=== PATIENT | male | born 1955 | race Caucasian/White ===

== ENCOUNTER 2018-11-11 17:40 | Observation (INO) ==
[2018-11-11 19:23] LABS: Basophils % 0.2 %; Eosinophils # 0.1 K/mcL (0.0-0.6); Eosinophils % 0.8 %; Hematocrit 42.6 % (37.5-50.1); Hemoglobin 14.9 g/dL (12.9-16.9); Immature Granulocytes % 0.4 % (0-4); Lymphocytes # 1.6 K/mcL (0.6-4.6); Mean Platelet Volume 11.1 fL (9.4-12.4); Monocytes # 1.2 K/mcL (0.0-1.3); Monocytes % 9.7 %; Neutrophils # 9.4 K/mcL (1.6-8.9); Platelet Count 208 K/mcL (140-400); Red Blood Count 5.13 M/mcL (4.19-5.50); Red Cell Distribution Width 13.2 % (11.5-14.5); Segmented Neutrophils % 75.9 %
[2018-11-11 19:43] LABS: BUN/Creatinine Ratio 13 (6-26); Blood Urea Nitrogen 26 mg/dL (8-23); Calcium 9.8 mg/dL (8.6-10.3); Carbon Dioxide 24 mEq/L (23-29); Chloride 98 mEq/L (98-107); Glucose 213 mg/dL (70-105); Osmolality,Calculated 291 (280-300); Potassium 3.3 mEq/L (3.5-5.1); Sodium 135 mEq/L (136-145); eGFR For Non-African Americans 35 (> 60)
[2018-11-11 19:44] LABS: Troponin I < 0.03 ng/mL (< 0.04)
[2018-11-11] MEDS ORDERED: 0.9 % Sodium Chloride 1,000 ML IVC ONE ×2 (19:54→20:06)
--- NOTE | 2018-11-11 20:05 | Emergency Department Note ---
Disposition Clinical Impression: Near syncope, Acute kidney injury Disposition: Admitted As Inpatient Condition: Good Referrals: NONE,PCP [Primary Care Provider] - Forms: ED Satisfaction Letter General Adult HPI - General Chief complaint: ED Ear Stated complaint: URI/Dizzy Time Seen by Provider: 11/11/18 18:35 Source: EMS Mode of arrival: ambulatory Limitations: no limitations Nursing Notes Reviewed: Yes Vital Signs Reviewed: Yes - History of Present Illness HPI Narrative: Patient was walking around [facility] when he became lightheaded and dizzy. Concern for possible low blood sugar and dehydration. Patient drinking Gatorade. Patient continued to not feel well and felt something might be wrong. Patient came to the emergency department for further evaluation. Upon my evaluation the patient he has been here approximately one hour. Patient states after drinking a Powerade he has had some improvement. Patient has no further feelings of feeling like he might pass out. Patient has not had chest pain or shortness of breath. The patient will undergo further evaluation for near syncopal event. Pain Scale: 0 - Related Data Home Medications Medication Instructions Recorded Confirmed Amlodipine [Norvasc] 10 mg PO QAM 06/14/15 06/14/15 Aspirin Enteric Coated [Aspirin EC] 81 mg PO QAM 06/14/15 06/14/15 Cyclobenzaprine [Flexeril] 10 mg PO TID 06/14/15 06/14/15 Multivitamin [Multi-Day Vitamins] 1 tab PO QAM 06/14/15 06/14/15 Naproxen [Naprosyn] 500 mg PO BID 06/14/15 06/14/15 Oxycodone HCl/Acetaminophen 1 tab PO Q8H PRN 06/14/15 06/14/15 [Percocet 5-325 mg Tablet] Potassium Chloride 20 meq PO BID 06/14/15 06/14/15 Pravastatin Sodium 10 mg PO QAM 06/14/15 06/14/15 Ramipril [Altace] 20 mg PO QAM 06/14/15 06/14/15 Ranitidine HCl [Zantac] 150 mg PO QPM 06/14/15 06/14/15 metFORMIN [Glucophage] 500 mg PO QAM 06/14/15 06/14/15 Previous Rx's Medication Instructions Recorded Dicyclomine [Bentyl] 10 mg PO QID PRN #20 capsule 07/26/15 Ondansetron ODT [Zofran ODT] 4 mg SL Q6HR #10 tab.rapdis 01/26/17 Docusate [Colace] 100 mg PO BID #60 capsule 10/13/17 Nitrofurantoin Monohyd/M-Cryst 100 mg PO BID #14 capsule 06/06/18 [Macrobid 100 mg Capsule] Allergies Allergy/AdvReac Type Severity Reaction Status Date / Time No Known Allergies Allergy Verified 10/05/18 15:57 All systems ED: reviewed and negative except as stated. Review of Systems: As Per HPI Constitutional: Denies: fever, chills ENT ED: Denies: congestion Cardiovascular: Reports: syncope (Near-syncope), other (Facial flushing). Denies: chest pain, palpitations Respiratory: Denies: cough, dyspnea Gastrointestinal: Denies: abdominal pain, nausea, vomiting Genitourinary: Denies: urgency, dysuria Musculoskeletal: Denies: back pain, neck pain Integumentary: Denies: rash, abrasion Neurological: Denies: headache Endocrine: Denies: fatigue Past Medical History - Past Medical History Medical history: Reports: arthritis, cancer, diabetes, GERD, hyperlipidemia, hypertension, other Surgical history: Reports: cataract, cholecystectomy, orthopedic, other Psychiatric history: Reports: no psych history - Social History Smoking Status: Former smoker Smokeless Tobacco Status: No Alcohol use: Reports: none Drug use: Reports: none Physical Exam General: Well appearing, nontoxic, no acute distress Head: Normocephalic Atraumatic Eyes: Right eye with lateral nystagmus ENT: Airway patent, no stridor Neck: supple, no meningismus Chest: Lungs clear to auscultation bilateral Cardiac: Regular rate and rhythm, no murmurs, rubs or gallops Abdomen: soft, nontender, nondistended; no guarding, rebound, or tenderness to percussion Musculoskeletal: Calves symmetric, nontender. Skin: No rash, normal skin tone. Neuro: Alert and Oriented to person, place, and time; No obvious focal deficit. - General General appearance: alert, in no apparent distress Course - Reevaluation(s) Reevaluation #1: Patient found to have significant acute kidney injury. In combination with his near syncopal event which was otherwise unexplained the patient will be admitted for further evaluation. - Consultations Consultation #1: discussed with hospitalist. Pt accepted for admission. Vital Signs Temperature 98.3 F 11/11/18 17:43 Pulse Rate 84 11/11/18 17:43 Respiratory Rate 16 11/11/18 17:43 Blood Pressure 112/78 11/11/18 17:43 O2 Sat by Pulse Oximetry 100 11/11/18 17:43 Temperature 98.3 F 11/11/18 17:43 Pulse Rate 84 11/11/18 17:43 Respiratory Rate 16 11/11/18 17:43 Blood Pressure 112/78 11/11/18 17:43 O2 Sat by Pulse Oximetry 100 11/11/18 17:43 Oxygen Delivery Oxygen Delivery Room Air Medical Decision Making - Medical Records Medical records reviewed: Yes I reviewed the patient's medical records. - Lab Data Lab results reviewed: Yes I reviewed the patient's lab results. Result diagrams: 11/11/18 19:09 11/11/18 19:09 Lab Results 11/11/18 11/11/18 Range/Units 19:09 19:09 WBC 12.4 H (4.3-11.1) K/mcL RBC 5.13 (4.19-5.50) M/mcL Hgb 14.9 (12.9-16.9) g/dL Hct 42.6 (37.5-50.1) % MCV 83.0 (83.0-100.0) fL MCH 29.0 (28.0-33.3) pg MCHC 35.0 (31.6-35.5) g/dL RDW 13.2 (11.5-14.5) % Plt Count 208 (140-400) K/mcL MPV 11.1 (9.4-12.4) fL Immature Gran % 0.4 (0-4) % Seg Neutrophils % 75.9 % Lymphocytes % 13.0 % Monocytes % 9.7 % Eosinophils % 0.8 % Basophils % 0.2 % Neutrophils # 9.4 H (1.6-8.9) K/mcL Lymphocytes # 1.6 (0.6-4.6) K/mcL Monocytes # 1.2 (0.0-1.3) K/mcL Eosinophils # 0.1 (0.0-0.6) K/mcL Basophils # 0.0 (0.0-0.2) K/mcL Sodium 135 L (136-145) mEq/L Potassium 3.3 L (3.5-5.1) mEq/L Chloride 98 (98-107) mEq/L Carbon Dioxide 24 (23-29) mEq/L BUN 26 H (8-23) mg/dL Creatinine 1.96 H (0.70-1.30) mg/dL Est GFR ( Amer) 42 L (> 60) Est GFR (Non-Af Amer) 35 L (> 60) BUN/Creatinine Ratio 13 (6-26) Glucose 213 H (70-105) mg/dL Calculated Osmolality 291 (280-300) Calcium 9.8 (8.6-10.3) mg/dL Troponin I < 0.03 (< 0.04) ng/mL - Radiology Data Radiology results reviewed: Yes I reviewed the patient's radiology results. - EKG Data EKG #1 EKG attestation: Yes I reviewed and interpreted this EKG. EKG results narrative: EKG shows sinus rhythm with ventricular rate of 81 [place] 203 QRS [address] elevations or depressions. Decreased R-wave progression compared to previous of 06/06/18.
[2018-11-11] MEDS ORDERED: Naloxone 0.4 MG/ML INJ IVP PRN (20:52)
[2018-11-11 22:31] LABS: Bilirubin,Urine Negative (Negative); Blood,Urine Negative (Negative); Clarity,Urine Clear (Clear); Color,Urine Yellow (Yellow); Glucose,Urine (UA) Normal (Normal); Ketones,Urine Trace mg/dL (Negative); Leukocyte Esterase,Urine Negative (Negative); Nitrite,Urine Negative (Negative); Protein,Urine 30 mg/dL (Neg-Trace); Specific Gravity,Urine 1.008 (1.010-1.025); Urobilinogen,Urine Normal (Normal)
[2018-11-11 22:33] LABS: Bacteria,Urine None Seen per hpf (None-Few); RBC,Urine 0-3 per hpf (0-3); Squamous Epithelial Cell,Urine Many per lpf (None-Few)
[2018-11-11 22:46] LABS: Hyaline Casts,Urine Few per lpf (None-Few)
[2018-11-12] MEDS ORDERED: Potassium Chloride Elixir 20 MEQ/15 ML UDC PO ONE ×2 (00:18→02:24)
[2018-11-12 01:21] LABS: Basophils % 0.4 %; Eosinophils # 0.2 K/mcL (0.0-0.6); Eosinophils % 1.6 %; Hematocrit 40.7 % (37.5-50.1); Hemoglobin 14.2 g/dL (12.9-16.9); Immature Granulocytes % 0.2 % (0-4); Lymphocytes # 2.7 K/mcL (0.6-4.6); Mean Corpuscular HGB Conc 34.9 g/dL (31.6-35.5); Mean Corpuscular Volume 83.2 fL (83.0-100.0); Mean Platelet Volume 11.8 fL (9.4-12.4); Monocytes # 1.2 K/mcL (0.0-1.3); Monocytes % 10.2 %; Neutrophils # 7.2 K/mcL (1.6-8.9); Platelet Count 215 K/mcL (140-400); Red Blood Count 4.89 M/mcL (4.19-5.50); Red Cell Distribution Width 13.2 % (11.5-14.5); Segmented Neutrophils % 63.6 %
[2018-11-12 01:24] LABS: Chol/HDL Ratio 4.3 (0-4.9); Cholesterol 130 mg/dL (< 200); HDL Cholesterol 30 mg/dL (40-59); LDL Cholesterol,Calculated 79 mg/dL (0-99); Magnesium 1.8 mg/dL (1.6-2.6); Triglycerides 107 mg/dL (< 150)
[2018-11-12 01:37] LABS: Calcium 9.2 mg/dL (8.6-10.3); Potassium 2.8 mEq/L (3.5-5.1)
[2018-11-12 01:38] LABS: Thyroid Stimulating Hormone 2.445 mcIU/mL (0.340-5.600)
[2018-11-12] MEDS ORDERED: 0.9 % Sodium Chloride 1,000 ML IVC SCH (02:30)
--- NOTE | 2018-11-12 03:23 | Internal Med History&Physical ---
Date of Encounter: 11/12/18 Time of Encounter: 02:27 Internal Medicine - H&P: HPI Chief complaint: Near syncope History of present illness: Mr. Jett is a 63 year old male with a past medical history of diabetes, hypertension, hyperlipidemia who presents to the ED after a near syncopal event. Patient states that earlier today while shopping at [employer] he began feeling flushed and warm and shortly thereafter states he nearly passed out. Patient denies any loss of consciousness. He immediately sat down on a bench and subsequently decided to come into the hospital. Patient denies any chest pain, shortness of breath, palpitations prior to the event. He has no history of heart disease. He has a remote history of smoking. He states he has had several of these events over the past few years where he has passed out while standing. He states most of the time it is because of his low potassium and low blood sugar. On arrival, EMS reported a blood sugar of 120. Found to be over 200 after arrival to the ED. No family history of sudden cardiac or blood clots. He reports that he lives with his sister but has not had running tap water or heat for the past 8 years. Patient currently gets his water from his next-door neighbor by filling of large jugs and uses electric heaters at home. On arrival patient was afebrile and hemodynamically stable. Labs were notable for a mild leukocytosis of 12 and acute kidney injury. Patient is also legally blind in both eyes. Initial troponin and EKG were unremarkable. Chest x-ray was also unremarkable. Patient admitted for dehydration and near syncope workup. Past Med Surg Social Fam HX - Past Medical History Medical history: arthritis, cancer, diabetes, GERD, hyperlipidemia, hypertension, other Additional medical history: low potassium Psychiatric history: no psych history - Past Surgical History Surgical History: cataract, cholecystectomy, orthopedic, other Additional surgical history: Circumcision,carpal tunnel,right ankle - Social History Smoking Status: Former smoker Smokeless Tobacco Status: No Alcohol use: none Drug use: none - Family History Mother Living Status: Hx Family Cardiac Disorders: Yes (stroke) Hx Family Neuromuscular Disorders: Yes (stroke) Internal Medicine - H&P: Meds Amlodipine Besylate 10 mg PO DAILY 11/12/18 [History] Aspirin [Adult Aspirin] 81 mg PO DAILY 11/12/18 [History] Cyclobenzaprine [Flexeril] 20 mg PO HS PRN 11/12/18 [History] Hydrochlorothiazide [Microzide] 12.5 mg PO DAILY 11/12/18 [History] Lactulose [Enulose] 10 gm PO DAILY 11/12/18 [History] Multivitamin [One Daily Multivitamin] 1 tab PO DAILY 11/12/18 [History] Naproxen 1,000 mg PO DAILY PRN 11/12/18 [History] OxyCODONE/APAP 5/325 [Percocet 5/325 MG] 1 tab PO Q8H PRN 11/12/18 [History] Potassium Chloride [K-Tab ER] 20 meq PO BID 11/12/18 [History] Pravastatin Sodium 10 mg PO DAILY 11/12/18 [History] Ramipril 20 mg PO DAILY 11/12/18 [History] metFORMIN [Glucophage] 500 mg PO DAILY 11/12/18 [History] raNITIdine HCl [Zantac] 300 mg PO HS 11/12/18 [History] Allergy/AdvReac Type Severity Reaction Status Date / Time No Known Allergies Allergy Verified 11/12/18 13:06 All Systems PM: A 10-system review of systems was performed and is negative for pertinent findings except as documented above in the HPI. - Constitutional Constitutional: no chills, no fever(s), no night sweats - EENT Eyes: no change in vision, no discharge, no pain, no photophobia Ears: no ear discharge, no ear pain, no tinnitus Nose, mouth and throat: no dysphagia, no nasal discharge, no neck pain, no sore throat - Cardiovascular Cardiovascular ROS IM: no chest pain, no diaphoresis, no dyspnea, no lightheadedness, no palpitations, no syncope - Respiratory Respiratory: no cough, no dyspnea, no wheezing, no excessive phlegm production - Gastrointestinal Gastrointestinal: no abdominal pain, no diarrhea, no hematemesis, no hematochezia, no melena, no nausea, no vomiting - Musculoskeletal Musculoskeletal ROS IM: no numbness, no tingling - Integumentary Integumentary IM: no rash, no unusual bruising - Neurological Neurological ROS: no confusion, no convulsions, no focal weakness, no numbness, no tingling, no tremor(s) - Hematologic/Lymphatic Hematologic/Lymphatic: no easy bruising - Constitutional Vitals: Temp Pulse Resp BP Pulse Ox 98.1 F 84 16 163/77 99 11/11/18 21:29 11/11/18 21:29 11/11/18 21:29 11/11/18 21:29 11/11/18 21:29 Exam: General: Alert and oriented 3 lying in bed in no acute distress Skin:Normal color, no rash, no lesions. HEENT:EOM, pupils equal, round and reactive. Cardiovascular:Normal S1 & S2, no rubs, murmurs or gallops. No JVD. Pulse regular. Lungs:Normal breath sounds, no wheezes or crackles. Abdomen:Soft, non-tender, no rigidity. Extremities:No deformity, no edema or tenderness, no joint swelling or clubbing. Neurological:Normal cognition and motor skills. Pulses:Carotid and radial pulses normal +2. Rest of the physical exam is non contributory Internal Med - H&P Results - Labs CBC & Chem 7: 11/12/18 00:16 11/12/18 00:16 Labs: Short CBC 11/11/18 11/12/18 Range/Units 19:09 00:16 WBC 12.4 H 11.3 H (4.3-11.1) K/mcL Hgb 14.9 14.2 (12.9-16.9) g/dL Hct 42.6 40.7 (37.5-50.1) % Plt Count 208 215 (140-400) K/mcL Neutrophils # 9.4 H 7.2 (1.6-8.9) K/mcL BMP 11/11/18 11/12/18 19:09 00:16 Sodium 135 L 137 Potassium 3.3 L 2.8 L Chloride 98 103 Carbon Dioxide 24 26 BUN 26 H 24 H Creatinine 1.96 H 1.44 H Glucose 213 H 169 H Calcium 9.8 9.2 Cardiac Enzymes 11/11/18 11/12/18 Range/Units 19:09 00:16 Troponin I < 0.03 < 0.03 (< 0.04) ng/mL Urine 11/11/18 Range/Units 22:14 Urine Color Yellow (Yellow) Urine Clarity Clear (Clear) Urine pH 7.0 (5.0-8.0) pH Units Ur Specific [place] 1.008 L (1.010-1.025) Urine Protein 30 H (Neg-Trace) mg/dL Urine Glucose (UA) Normal (Normal) mg/dL - Impressions ITS Impressions Chest X-Ray 11/11/18 18:56 IMPRESSION: No radiographic evidence of acute cardiopulmonary process. D/ / Sharad Means MD / Sharad Means MD Interpreting Provider: Sharad Means MD - Assessment and plan (1) Near syncope Current Visit: Yes Status: Acute Assessment and plan: Patient reports a near syncopal episode preceded by a flushing sensation which occurred while standing. Troponin and EKG were unremarkable. Per EMS report his blood sugar was in the 120s on initial assessment. Repeat blood sugar here was over 200. Patient reports he has had syncopal episodes in the past which she attributed to low potassium and low blood sugar. No history of heart disease nor family history of heart disease or sudden cardiac . Most likely vasovagal versus orthostatic from dehydration in the setting of acute kidney injury. Cannot rule out cardiac syncope. -Telemetry -We will obtain orthostatic vitals -We will obtain echocardiogram -Bilateral carotid duplex -Cardiology consult due to recurrent episodes (2) Acute kidney injury Current Visit: Yes Status: Acute Assessment and plan: Acute kidney injury likely prerenal secondary to decreased by mouth intake. She received 2 L of fluid boluses in the ED. We will repeat metabolic panel in the morning and reassess. (3) HTN (hypertension) Current Visit: Yes Status: Chronic Assessment and plan: Pressure stable. Monitor Qualifiers: Hypertension type: essential hypertension Qualified Code(s): I10 - Essential (primary) hypertension (4) Hyperlipidemia associated with type 2 diabetes mellitus Current Visit: No Status: Chronic Assessment and plan: Continue with home statin (5) Type 2 diabetes mellitus Current Visit: Yes Status: Acute Assessment and plan: Type 2 diabetes. We will obtain blood glucose checks. Sliding scale insulin. Qualifiers: Diabetes mellitus terminal worker insulin use: unspecified nursing home insulin use status Chronic kidney disease stage: unspecified stage Qualified Code(s): E11.22 - Type 2 diabetes mellitus with diabetic chronic kidney disease (6) DVT prophylaxis Current Visit: Yes Status: Acute Assessment and plan: Subcutaneous heparin - Time Spent With Patient Total time spent is greater than 50% in coordination of care (as documented) at patient's floor/unit and/or counseling patient:
[2018-11-12] MEDS: *HR* Heparin 5,000 UNIT/ML VIAL SQ SCH ×3 (05:35→21:20)
[2018-11-12] MEDS ORDERED: Dextrose Gel 15 GM/37.5 ML TUBE PO PRN ×2 (08:01)
[2018-11-12] MEDS ORDERED: *HR* Dextrose 50 % in Water (Syg) 50 ML SYRINGE IVP PRN (08:01)
[2018-11-12] MEDS ORDERED: D5% in Water 1,000 ML IVC PRN (08:01)
[2018-11-12] MEDS: 0.9 % Sodium Chloride w KCl 40 MEQ/1,000 ML MLS IVC SCH ×2 (09:11→17:30)
--- NOTE | 2018-11-12 11:09 | Cardiology Consult Note ---
Addendum entered and electronically signed by Obie Hearn MD 11/12/18 11:59: I examined this patient and my medical decision-making was reviewed with the CONTROL TOWER OPERATOR. I agree with the documented findings, disposition and treatment plan as described except to the extent set forth below. A/P: Acute kidney injury likely 2/2 hypovolemia Near syncope Dehydration Repeat BMP, EKG ordered, TTE pending. Currently does not appear to be cardiac in origin. He denies any anginal symptoms. Thank you for the consult and allowing us to participate in the care of your patient, Obie Hearn MD [facility] Original Note: Date of Encounter: 11/12/18 Time of Encounter: 09:00 Assessment and Plan (1) Acute kidney injury Current Visit: Yes Status: Acute Per cardiology: -CHARIS noted, creatinine 1.96. -Baseline 0.8-1.1. -Management per primary service. (2) Near syncope Current Visit: Yes Status: Acute Per cardiology: -Patient reported near syncope in the setting of CHARIS, dehydration. Of note, reports no water intake at home. -Reports has had a couple episodes of dizziness previously. -Denies syncope, loss of bowel or bladder. -No ECG to review. -TTE pending. -No events noted on telemetry. -Will order ECG now. -If no significant findings on TTE, ECG, anticipate cardiology sign of. -Patient was recommended to stay well hydrated with water. Discussion w patient/family: The assessment and plan as outlined above was discussed with the patient who expressed understanding and agreement. All questions were answered. Thank you for involving us in the care of your patient. Please call with any questions. Discussed and reviewed with . History of Present Illness Consult date: 11/12/18 Requesting physician: Haroldo Treviño Consult reason: near syncope Chief complaint: dizziness History of present illness: Mr. Jett is a 63 year old male with a relevant past medical history of HLD, HTN, DM who presented to [facility] with complaints of dizziness. Patient reports [facility] his sister, when he became dizzy. Patient states he felt like he was going to pass out. Patient states he did not lose consciousness. Patient denies loss of bowel or bladder. Patient reports he has had a couple episodes of dizziness previously, however has never lost consciousness. Denies current dizziness, or near syncope. Patient reports he does not drink any water at home. Past Med Surg Social Fam HX - Past Medical History Attestation: Yes The following information was validated with the patient. Source: patient, old records reviewed Medical history: arthritis, cancer, diabetes, GERD, hyperlipidemia, hypertension, other Additional medical history: low potassium Psychiatric history: no psych history - Past Surgical History Surgical History: cataract, cholecystectomy, orthopedic, other Additional surgical history: Circumcision,carpal tunnel,right ankle - Social History Smoking Status: Former smoker Smokeless Tobacco Status: No Alcohol use: none Drug use: none - Family History Mother Living Status: Hx Family Cardiac Disorders: Yes (stroke) Hx Family Neuromuscular Disorders: Yes (stroke) Medications and Allergies Amlodipine [Norvasc] 10 mg PO QAM 06/14/15 [History] Aspirin Enteric Coated [Aspirin EC] 81 mg PO QAM 06/14/15 [History] Cyclobenzaprine [Flexeril] 10 mg PO TID 06/14/15 [History] Multivitamin [Multi-Day Vitamins] 1 tab PO QAM 06/14/15 [History] Naproxen [Naprosyn] 500 mg PO BID 06/14/15 [History] Oxycodone HCl/Acetaminophen [Percocet 5-325 mg Tablet] 1 tab PO Q8H PRN 06/14/15 [History] Potassium Chloride 20 meq PO BID 06/14/15 [History] Pravastatin Sodium 10 mg PO QAM 06/14/15 [History] Ramipril [Altace] 20 mg PO QAM 06/14/15 [History] Ranitidine HCl [Zantac] 150 mg PO QPM 06/14/15 [History] metFORMIN [Glucophage] 500 mg PO QAM 06/14/15 [History] Dicyclomine [Bentyl] 10 mg PO QID PRN #20 capsule 07/26/15 [Rx] Ondansetron ODT [Zofran ODT] 4 mg SL Q6HR #10 tab.rapdis 01/26/17 [Rx] Docusate [Colace] 100 mg PO BID #60 capsule 10/13/17 [Rx] Nitrofurantoin Monohyd/M-Cryst [Macrobid 100 mg Capsule] 100 mg PO BID #14 capsule 06/06/18 [Rx] Allergy/AdvReac Type Severity Reaction Status Date / Time No Known Allergies Allergy Verified 10/05/18 15:57 All Systems Review: The remainder of the systems were reviewed and are negative - Cardiovascular Cardiovascular: as per HPI, lightheadedness Physical Examination Vital Signs, Last 4 Hours Temp Pulse Resp BP Pulse Ox 11/12/18 09:11 99 11/12/18 08:31 97.9 F 68 17 173/77 99 General: Conversant, No Apparent Distress HEENT: Atraumatic, Normocephaly, Mucus Membranes Moist Neck: No JVD, Normal carotid pulses Cardiac: Reg Rate and Rhythm, Normal S1 and S2, No Murmur Lungs: Normal Breath Sounds, No Wheeze, Rales, Rhonchi Neuro: Alert and responsive, No focal deficits noted Abdomen: Soft, Non-Tender Skin: No rashes noted on visualized skin Musculoskeletal: No Chest Wall Tenderness Extremities: No Clubbing, No Cyanosis, No Edema, Normal Pulses Results 11/12/18 00:16 11/12/18 00:16 Lab Results Impressions Chest X-Ray 11/11/18 18:56 IMPRESSION: No radiographic evidence of acute cardiopulmonary process. D/ / Sharad Means MD / Sharad Means MD Interpreting Provider: Sharad Means MD Active Medications Dextrose/Water (Dextrose 50% (Syg)) 25 ml IVP AD PRN PRN Reason: Hypoglycemia Stop: 05/14/19 08:02 Glucagon (Glucagen) 1 mg IM ONCE PRN PRN Reason: Hypoglycemia Stop: 05/14/19 08:02 Glucose (Gluctose) 15 gm PO ONCE PRN PRN Reason: Hypoglycemia Stop: 05/14/19 08:02 Glucose (Gluctose) 30 gm PO ONCE PRN PRN Reason: Hypoglycemia Stop: 05/14/19 08:02 Heparin Sodium (Porcine) (Heparin) 5,000 unit SQ Q8HCO [place] Stop: 05/14/19 06:01 Last Admin: 11/12/18 05:35 Dose: 5,000 unit Potassium Chloride/Sodium Chloride (Kcl 40meq In 0.9% Sodium Chloride) 40 meq in 1,000 mls @ 100 mls/hr IVC .Q10H [place] Stop: 05/14/19 08:01 Last Admin: 11/12/18 09:11 Dose: 100 mls/hr Dextrose (Dextrose 5%) 1,000 mls @ 100 mls/hr IVC .Q10H PRN PRN Reason: HYPOGLYCEMIA Stop: 05/14/19 08:02 Insulin Human Lispro (Humalog) 0 units SQ HS [place]; Protocol Stop: 05/14/19 21:01 Insulin Human Lispro (Humalog) 0 units SQ TIDAC [place]; Protocol Stop: 05/14/19 11:31 Naloxone HCl (Narcan) 0.4 mg IVP Q2MIN PRN PRN Reason: SEE COMMENTS Stop: 05/13/19 20:53 Potassium Chloride (Potassium Chloride) 20 meq PO BID [place] Stop: 05/14/19 09:01 Last Admin: 11/12/18 09:11 Dose: 20 meq Laboratory Tests 10/05/18 11/11/18 11/12/18 16:15 19:09 00:16 WBC Potassium Creatinine 0.85 1.96 H Troponin I < 0.03 < 0.03 11/12/18 11/12/18 11/12/18 00:16 00:16 06:43 WBC 11.3 H Potassium 2.8 L Creatinine 1.44 H Troponin I < 0.03 - Imaging and Cardiology Chest Xray: report reviewed Echo: pending - EKG Interpretation EKG results cardiology: other (Telemetry reviewed with average HR previous 12 hours noted to be 80, SR. PVCs noted.) Consult Discharge Plan - Plan Referrals: Caity Umaña MD [Primary Care Provider] -
[2018-11-12] MEDS ORDERED: amLODIPine 5 MG TABLET PO SCH (11:15)
--- NOTE | 2018-11-12 11:41 | Internal Med Progress Note ---
Hospitalist Progress Note - Encounter Date of Encounter: 11/12/18 Time of Encounter: 10:15 - Subjective Interval History: H&P reviewed. Pt with history of diabetes, hypertension was admitted for near syncopal episode in the setting of CHARIS. No further episodes noted. Denies any nausea/vomiting, abdominal pain, or diarrhea. States that he does not get heat in his home and did not drink much fluid due to milk being slushy and hassle of getting his water from his neighbor. - Exam Vitals: Temp Pulse Resp BP Pulse Ox 97.9 F 68 17 173/77 99 11/12/18 08:31 11/12/18 08:31 11/12/18 08:31 11/12/18 08:31 11/12/18 09:11 Exam: General: Alert and oriented 3 lying in bed in no acute distress Cardiovascular:Normal S1 & S2, no rubs, murmurs or gallops. No JVD. Pulse regular. Lungs:Normal breath sounds, no wheezes or crackles. Abdomen:Soft, non-tender, no rigidity. Neurological: No focal deficitis - Assessment and Plan (1) Acute kidney injury Current Visit: Yes Status: Acute Assessment and Plan: Acute kidney injury likely prerenal secondary to decreased by mouth intake. Improving on IVF, continue hold off on metformin and ADA-i avoid nephrotoxins (2) Near syncope Current Visit: Yes Status: Acute Assessment and Plan: likely secondary to the above but will check echocardiogram and carotid doppler EKG NSR telemetry (3) HTN (hypertension) Current Visit: Yes Status: Chronic Assessment and Plan: resume norvasc (4) Hyperlipidemia associated with type 2 diabetes mellitus Current Visit: No Status: Chronic Assessment and Plan: Continue with home statin (5) Type 2 diabetes mellitus Current Visit: Yes Status: Acute Assessment and Plan: hold off on metformin low dose sliding scale ADA diet (6) Hypokalemia Current Visit: Yes Status: Acute Assessment and Plan: replete via IVF and PO (7) DVT prophylaxis Current Visit: Yes Status: Acute Assessment and Plan: Subcutaneous heparin - Time Spent with Patient Total time spent is greater than 50% in coordination of care (as documented) at patient's floor/unit and/or counseling patient: Plan of Care Discussed with: patient Internal Medicine: Result - Labs CBC & Chem 7: 11/12/18 00:16 11/12/18 00:16 Labs: Short CBC 11/11/18 11/12/18 Range/Units 19:09 00:16 WBC 12.4 H 11.3 H (4.3-11.1) K/mcL Hgb 14.9 14.2 (12.9-16.9) g/dL Hct 42.6 40.7 (37.5-50.1) % Plt Count 208 215 (140-400) K/mcL Neutrophils # 9.4 H 7.2 (1.6-8.9) K/mcL BMP 11/11/18 11/12/18 19:09 00:16 Sodium 135 L 137 Potassium 3.3 L 2.8 L Chloride 98 103 Carbon Dioxide 24 26 BUN 26 H 24 H Creatinine 1.96 H 1.44 H Glucose 213 H 169 H Calcium 9.8 9.2 Cardiac Enzymes 11/11/18 11/12/18 11/12/18 Range/Units 19:09 00:16 06:43 Troponin I < 0.03 < 0.03 < 0.03 (< 0.04) ng/mL Urine 11/11/18 Range/Units 22:14 Urine Color Yellow (Yellow) Urine Clarity Clear (Clear) Urine pH 7.0 (5.0-8.0) pH Units Ur Specific [place] 1.008 L (1.010-1.025) Urine Protein 30 H (Neg-Trace) mg/dL Urine Glucose (UA) Normal (Normal) mg/dL - Impressions Impressions Chest X-Ray 11/11/18 18:56 IMPRESSION: No radiographic evidence of acute cardiopulmonary process. D/ / Sharad Means MD / Sharad Means MD Interpreting Provider: Sharad Means MD Consult Discharge Plan - Plan Referrals: Caity Umaña MD [Primary Care Provider] - (3) HTN (hypertension) Qualifiers: Hypertension type: essential hypertension Qualified Code(s): I10 - Essential (primary) hypertension
[2018-11-12] MEDS: Insulin LISPRO 300 UNITS/3 ML VIAL SQ SCH ×2 (13:12→17:29)
[2018-11-12] MEDS ORDERED: *HR* OxyCODONE/APAP 5/325 TABLET PO PRN (13:53)
[2018-11-12] MEDS ORDERED: Insulin LISPRO 300 UNITS/3 ML VIAL SQ SCH (21:00)
[2018-11-12] MEDS ORDERED: Famotidine 20 MG TABLET PO SCH (21:00)
[2018-11-13] MEDS: 0.9 % Sodium Chloride w KCl 40 MEQ/1,000 ML MLS IVC SCH (03:35)
[2018-11-13] MEDS: *HR* Heparin 5,000 UNIT/ML VIAL SQ SCH (05:59)
[2018-11-13 07:02] LABS: Estimated Average Glucose 154 mg/dl
[2018-11-13] MEDS: Insulin LISPRO 300 UNITS/3 ML VIAL SQ SCH ×2 (08:37→13:14)
[2018-11-13 08:38] VITALS: BP 131/76
[2018-11-13] MEDS ORDERED: amLODIPine 5 MG TABLET PO SCH (09:00)
[2018-11-13] MEDS ORDERED: Aspirin Enteric Coated 81 MG Tablet PO SCH (09:00)
[2018-11-13 09:53] LABS: Basophils % 0.6 %; Eosinophils # 0.2 K/mcL (0.0-0.6); Eosinophils % 3.2 %; Hematocrit 39.6 % (37.5-50.1); Hemoglobin 13.4 g/dL (12.9-16.9); Immature Granulocytes % 0.3 % (0-4); Lymphocytes % 32.4 %; Mean Corpuscular HGB Conc 33.8 g/dL (31.6-35.5); Mean Corpuscular Hemoglobin 28.8 pg (28.0-33.3); Mean Corpuscular Volume 85.2 fL (83.0-100.0); Mean Platelet Volume 11.1 fL (9.4-12.4); Monocytes # 0.7 K/mcL (0.0-1.3); Monocytes % 10.5 %; Neutrophils # 3.3 K/mcL (1.6-8.9); Platelet Count 179 K/mcL (140-400); Red Blood Count 4.65 M/mcL (4.19-5.50); Red Cell Distribution Width 13.9 % (11.5-14.5)
[2018-11-13 10:15] LABS: BUN/Creatinine Ratio 14 (6-26); Blood Urea Nitrogen 12 mg/dL (8-23); Calcium 8.9 mg/dL (8.6-10.3); Carbon Dioxide 27 mEq/L (23-29); Chloride 105 mEq/L (98-107); Glucose 205 mg/dL (70-105); Magnesium 1.7 mg/dL (1.6-2.6); Osmolality,Calculated 292 (280-300); Sodium 138 mEq/L (136-145); eGFR For Non-African Americans > 60 (> 60)
--- NOTE | 2018-11-13 10:18 | Discharge Summary ---
- NOTES TO OUTPATIENT PROVIDER Notes to Outpatient Provider: Pt with history of diabetes, hypertension was admitted for near syncopal episode in the setting of CHARIS. No further episodes noted inpatient. CLinically improved with IVF and both HCTZ and ramipril remains on hold at the time of discharge, which can be resumed as outpatient if needed. Was seen in consultation with cardiology and did not think that it was cardiac in origin. Orders not resulted at time of discharge: Pending orders 11/11/18 18:18 EKG [ECG 12 lead ECG] [ECG] Stat 11/12/18 11:20 ECG 12 lead ECG [ECG] Stat Date of Encounter: 11/13/18 Time of Encounter: 09:00 - Discharge Diagnosis (1) HTN (hypertension) Priority: Secondary Status: Chronic Qualifiers: Hypertension type: essential hypertension Qualified Code(s): I10 - Essential (primary) hypertension (2) Hyperlipidemia associated with type 2 diabetes mellitus Priority: Secondary Status: Chronic (3) Near syncope Priority: Primary Status: Acute (4) Acute kidney injury Priority: Secondary Status: Acute (5) DVT prophylaxis Priority: Secondary Status: Acute (6) Type 2 diabetes mellitus Priority: Secondary Status: Acute Qualifiers: Diabetes mellitus long-term insulin use: unspecified intermediate manager insulin use status Chronic kidney disease stage: unspecified stage Qualified Code(s): E11.22 - Type 2 diabetes mellitus with diabetic chronic kidney disease Hospital course: Mr. Jett is a 63 year old male with history of diabetes, hypertension was admitted for near syncopal episode in the setting of CHARIS. No further episodes noted inpatient. CLinically improved with IVF and both HCTZ and ramipril remains on hold at the time of discharge, which can be resumed as outpatient if needed. Was seen in consultation with cardiology and did not think that it was cardiac in origin. Discharge discussed with: patient, nurse - Time Spent with Patient Total time spent providing and/or coordinating discharge services: 27 mins - Discharge Medications Home Medications: Amlodipine Besylate 10 mg PO DAILY 11/12/18 [History] Aspirin [Adult Aspirin] 81 mg PO DAILY 11/12/18 [History] Cyclobenzaprine [Flexeril] 20 mg PO HS PRN 11/12/18 [History] Lactulose [Enulose] 10 gm PO DAILY 11/12/18 [History] Multivitamin [One Daily Multivitamin] 1 tab PO DAILY 11/12/18 [History] OxyCODONE/APAP 5/325 [Percocet 5/325 MG] 1 tab PO Q8H PRN 11/12/18 [History] Potassium Chloride [K-Tab ER] 20 meq PO BID 11/12/18 [History] Pravastatin Sodium 10 mg PO DAILY 11/12/18 [History] metFORMIN [Glucophage] 500 mg PO DAILY 11/12/18 [History] raNITIdine HCl [Zantac] 300 mg PO HS 11/12/18 [History] Allergies/Adverse Reactions: Allergy/AdvReac Type Severity Reaction Status Date / Time No Known Allergies Allergy Verified 11/12/18 13:06 Date of admission: 11/11/18 20:52 Primary care physician: Caity Umaña Consults: 11/12/18 00:50 Consult to [employer] [CONS] Routine Reason for SW Consult: Patient without running tapwater or heat for the past 8-10 years. - Constitutional Vitals: Temp Pulse Resp BP Pulse Ox 98.0 F 58 16 131/76 97 11/13/18 08:32 11/13/18 08:32 11/13/18 08:32 11/13/18 08:32 11/13/18 08:32 Exam: General: Alert and oriented 3 lying in bed in no acute distress Cardiovascular:Normal S1 & S2, no rubs, murmurs or gallops. No JVD. Pulse regular. Lungs:Normal breath sounds, no wheezes or crackles. Abdomen:Soft, non-tender, no rigidity. Extremities:No deformity, no edema or tenderness, no joint swelling or clubbing. Neurological:Normal cognition and motor skills. - Patient Status Disposition: Home, Self-Care Condition: Good Functional capacity at discharge: independent ambulation Overall status at discharge: patient is progressing back to baseline - Discharge Instructions Instructions: Diabetes Mellitus Type 2 in Adults (DC), Chronic Hypertension (DC) Follow Up With: Caity Umaña MD [Primary Care Provider] - Additional Instructions: Encourage oral intake HCTZ and ramipril remain on hold due to resolving CHARIS. Resume as clinically indicated as outpatient - Diet and Activity Activity: resume usual activities as tolerated Diet: diabetic diet
--- NOTE | 2018-11-14 07:56 | Electrocardiograph Report ---
Carotid Duplex Patient Name:Kory Jett Order Number:[id number] Procedure Date:11/12/2018 Date:1955ge:63 yrs Gender:Male Lt BP:149 / 72 mmHg Rt.BP:144 / 73 mmHgHeart Rate: Location:[facility] Room #: 3B23 Office Mover:Debra Kramer RDCS, RVT Referring MD:Haroldo Treviño MD Reading MD:Brennon Chicas MD Primary Indications:Near syncope Risk Factors Yes/No Hypertension Yes Diabetes Yes Hypercholesterolemia Yes Smoking Current No Hx of TIA No Hx of CVA No Impressions: Findings: Bilateral carotid system has nonstenotic plaque. Recommendations: After imaging the patient returned to their room. Findings Carotid Duplex: Right: The right proximal common carotid artery has a PSV of 88 cm/s and a EDV of 13 cm/s. The right mid common carotid artery has a PSV of 105 cm/s and a EDV of 17 cm/s. The right distal common carotid artery has a PSV of 88 cm/s and a EDV of 14 cm/s. There is nonstenotic plaque in the right bifurcation with a PSV of 67 cm/s and a EDV of 13 cm/s. The right proximal internal carotid artery has a PSV of 75 cm/s and a EDV of 22 cm/s. The right mid internal carotid artery has a PSV of 80 cm/s and a EDV of 24 cm/s. The right distal internal carotid artery has a PSV of 78 cm/s and a EDV of 22 cm/s. The right eca has a PSV of 153 cm/s and a EDV of 11 cm/s. The right vertebral artery has a PSV of 44 cm/s and a EDV of 10 cm/s. Left: The left proximal common carotid artery has a PSV of 188 cm/s and a EDV of 17 cm/s. The left mid common carotid artery has a PSV of 135 cm/s and a EDV of 14 cm/s. The left distal common carotid artery has a PSV of 118 cm/s and a EDV of 17 cm/s. There is nonstenotic plaque in the left bifurcation with a PSV of 107 cm/s and a EDV of 16 cm/s. The left proximal internal carotid artery has a PSV of 71 cm/s and a EDV of 14 cm/s. The left mid internal carotid artery has a PSV of 81 cm/s and a EDV of 21 cm/s. The left distal internal carotid artery has a PSV of 89 cm/s and a EDV of 21 cm/s. The left eca has a PSV of 149 cm/s and a EDV of 10 cm/s. The left vertebral artery has a PSV of 49 cm/s and a EDV of 10 cm/s. Prior Study: No prior study available for comparison. After imaging the patient returned to their room. Carotid Results Right PSV EDV Assessment Proximal CCA 88 13 Normal Mid CCA 105 17 Normal Distal CCA 88 14 Normal Bifurcation 67 13 Non Stenotic Plaque Proximal ICA 75 22 Normal Mid ICA 80 24 Normal Distal ICA 78 22 Normal ECA 153 11 Normal Vertebral Artery 44 10 Normal Left PSV EDV Assessment Proximal CCA 188 17 Normal Mid CCA 135 14 Normal Distal CCA 118 17 Normal Bifurcation 107 16 Non Stenotic Plaque Proximal ICA 71 14 Normal Mid ICA 81 21 Normal Distal ICA 89 21 Normal ECA 149 10 Normal Vertebral Artery 49 10 Normal Ratio's Right ICA/CCA Ratio: 0.76 ICA/CCA Values: 80/105 Left ICA/CCA Ratio: 0.66 ICA/CCA Values: 89/135 Updated by Brennon Chicas MD on 11/14/2018 7:44:17 AM electronically signed on 11/14/2018 7:44:45 AM with status of Final
--- NOTE | 2018-11-16 14:40 | Electrocardiograph Report ---
[address] [address] Test Date: 2018-11-13 Pat Name: Kory Jett Department: 113 Room: 3B23 Gender: M Musical Therapist: : 1955 Requested By: Ninoska Biggs Order Number: [id number] Reading MD: Domonique Escudero Measurements Intervals [place] Rate: 68 P: 47 MS: 199 QRS: -14 QRSD: 99 T: 9 QT: 372 QTc: 390 Interpretive Statements SINUS RHYTHM Electronically Signed On 11-16-2018 14:38:43 EST by Domonique Escudero
== END 2018-11-13 14:30 | disposition home or self-care (01) ==
LOC: 3BNU 17:40 → EMEROOARM 17:40 → SUATTDRO 20:52 → 3BNU 21:12
PROVIDERS: ADMIT Internal Medicine; ATTEND Internal Medicine

== ENCOUNTER 2019-02-07 12:49 | Observation (INO) ==
[2019-02-07] MEDS ORDERED: 0.9 % Sodium Chloride 1,000 ML IVC ONE (12:56)
--- NOTE | 2019-02-07 13:02 | Emergency Department Note ---
Disposition Clinical Impression: Near syncope, Neurological deficit present Disposition: Admitted As Inpatient Condition: Fair Forms: ED Satisfaction Letter General Adult HPI - General Chief complaint: ED Dizziness Stated complaint: weakness Time Seen by Provider: 02/07/19 12:54 Source: patient, EMS Limitations: no limitations Nursing Notes Reviewed: Yes Vital Signs Reviewed: Yes - History of Present Illness HPI Narrative: Patient presenting to the emergency department for evaluation of near-syncopal episode. 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 Patient was started on prednisone. Patient was at [facility] today when he started having abdominal cramping and feeling significant flushed. Patient went to the bathr oom which relieved his abdominal symptoms however he felt as if he was going to pass out. The symptoms lasted for over 10 minutes and was eventually brought to the emergency department for further evaluation. During the patient's visit to the emergency department several days ago he was also complaining of near- syncopal episodes. This was evaluated. There is no significant findings. Patient was let go home at this time. Today secondary to the patient's overall symptoms she will likely require admission. Pain Scale: 0 - Related Data Home Medications Medication Instructions Recorded Confirmed Amlodipine Besylate 10 mg PO DAILY 11/12/18 11/12/18 Aspirin [Adult Aspirin] 81 mg PO DAILY 11/12/18 11/12/18 Cyclobenzaprine [Flexeril] 20 mg PO HS PRN 11/12/18 02/04/19 Lactulose [Enulose] 10 gm PO DAILY 11/12/18 02/04/19 Multivitamin [One Daily 1 tab PO DAILY 11/12/18 02/04/19 Multivitamin] OxyCODONE/APAP 5/325 [Percocet 1 tab PO Q8H PRN 11/12/18 02/04/19 5/325 MG] Potassium Chloride [K-Tab ER] 20 meq PO BID 11/12/18 02/04/19 Pravastatin Sodium 10 mg PO DAILY 11/12/18 02/04/19 metFORMIN [Glucophage] 500 mg PO DAILY 11/12/18 02/04/19 raNITIdine HCl [Zantac] 300 mg PO HS 11/12/18 11/12/18 Previous Rx's Medication Instructions Recorded Carboxymethylcellulose Sodium 15 ml OP QID PRN #1 drops 02/04/19 [Moisturizing Lubricant Eye Drp] predniSONE [PredniSONE] 60 mg PO DAILY 6 Days tablet 02/04/19 Allergies Allergy/AdvReac Type Severity Reaction Status Date / Time No Known Allergies Allergy Verified 11/12/18 13:06 Review of Systems: CONSTITUTIONAL: No weight loss, fever, chills, weakness or fatigue. HEENT: Eyes: No visual changes. Ears, Nose, Throat: Vision loss left eye. No difficulty swallowing SKIN: No rash or itching. CARDIOVASCULAR: No chest pain, chest pressure or chest discomfort. No palpitations or edema. RESPIRATORY: No shortness of breath, cough or sputum. GASTROINTESTINAL: No anorexia, nausea, vomiting or diarrhea. No abdominal pain or blood. GENITOURINARY: No burning on urination or hematuria. NEUROLOGICAL: Lightheadedness with associated nursing.. Facial droop as well as vision loss left eye MUSCULOSKELETAL: No muscle pain, back pain, joint pain or stiffness. Past Medical History - Past Medical History Medical history: Reports: arthritis, cancer, diabetes, GERD, hyperlipidemia, hypertension, other Surgical history: Reports: cataract, cholecystectomy, orthopedic, other Psychiatric history: Reports: no psych history - Social History Smoking Status: Former smoker Smokeless Tobacco Status: No Alcohol use: Reports: none Drug use: Reports: none Physical Exam General: Well appearing, nontoxic, no acute distress Head: Normocephalic Atraumatic Eyes: PERRL, EOMI ENT: Airway patent, no stridor Neck: supple, no meningismus Chest: Lungs clear to auscultation bilateral Cardiac: Regular rate and rhythm, no murmurs, rubs or gallops Abdomen: soft, nontender, nondistended; no guarding, rebound, or tenderness to percussion Musculoskeletal: Calves symmetric, nontender. Skin: No rash, normal skin tone. Neuro: Alert and Oriented to person, place, and time; patient with difficult to vision. When asking him to see my fingers at arms length. Patient's eyes are not able to significantly follow without several episodes prompting. On further evaluation of patient's vision. Vision to the right eye is intact. Patient is legally blind but is at baseline for the side. The left eye is unable to distinguish fingers at arms length. Patient may try to guess is he was unable to get any of the attempts right. The patient does have sensation intact throughout face upper and lower extremities. The patient's strength is symmetric throughout the upper and lower extremities. Patient does have left- sided facial droop injury including the forehead as well as the lower face. Patient unable to finger to nose as he is unable to see my finger but does correctly touch his nose with his finger. - General Limitations: no limitations General appearance: alert, in no apparent distress Course Course Narrative: Patient presenting for both near syncopal event just second visit within 1 week for nursing to be with no previous cardiac evaluation. Patient was brought in for further evaluation of syncope. Patient also has left-sided facial paralys is. On further neurologic exam there is no other significant findings other than loss of vision to the left eye. He states that he is legally blind in both eyes. Patient was unable to distinguish fingers at arms length the left eye. Given the history of recently diagnosed Blanton's palsy with vision symptoms starting at the same time. Patient will also need further evaluation within the hospital for stroke rule out. - Consultations Consultation #1: Discussed with hospitalist. Pt accepted. Vital Signs Temperature 98.5 F 02/07/19 12:51 Pulse Rate 77 02/07/19 12:51 Respiratory Rate 18 02/07/19 12:51 Blood Pressure 151/77 02/07/19 12:51 O2 Sat by Pulse Oximetry 99 02/07/19 12:51 Temperature 98.5 F 02/07/19 12:51 Pulse Rate 84 02/07/19 15:29 Respiratory Rate 16 02/07/19 15:29 Blood Pressure 174/73 02/07/19 15:29 O2 Sat by Pulse Oximetry 100 02/07/19 15:29 Oxygen Delivery Oxygen Delivery Room Air Medical Decision Making - Medical Records Medical records reviewed: Yes I reviewed the patient's medical records. - Lab Data Lab results reviewed: Yes I reviewed the patient's lab results. Result diagrams: 02/07/19 12:59 02/07/19 12:59 Lab Results 02/07/19 02/07/19 02/07/19 Range/Units 12:59 12:59 12:59 WBC 12.2 H D (4.3-11.1) K/mcL RBC 4.98 (4.19-5.50) M/mcL Hgb 14.7 (12.9-16.9) g/dL Hct 42.4 (37.5-50.1) % MCV 85.1 (83.0-100.0) fL MCH 29.5 (28.0-33.3) pg MCHC 34.7 (31.6-35.5) g/dL RDW 13.1 (11.5-14.5) % Plt Count 227 (140-400) K/mcL MPV 11.0 (9.4-12.4) fL Immature Gran % 0.6 (0-4) % Seg Neutrophils % 73.6 % Lymphocytes % 13.8 % Monocytes % 8.6 % Eosinophils % 2.9 % Basophils % 0.5 % Neutrophils # 9.0 H (1.6-8.9) K/mcL Lymphocytes # 1.7 (0.6-4.6) K/mcL Monocytes # 1.1 (0.0-1.3) K/mcL Eosinophils # 0.4 (0.0-0.6) K/mcL Basophils # 0.1 (0.0-0.2) K/mcL Sodium 136 (136-145) mEq/L Potassium 3.6 (3.5-5.1) mEq/L Chloride 102 (98-107) mEq/L Carbon Dioxide 25 (23-29) mEq/L BUN 13 (8-23) mg/dL Creatinine 1.09 (0.70-1.30) mg/dL Est GFR ( Amer) > 60 (> 60) Est GFR (Non-Af Amer) > 60 (> 60) BUN/Creatinine Ratio 12 (6-26) Glucose 301 H (70-105) mg/dL Calculated Osmolality 293 (280-300) Calcium 9.4 (8.6-10.3) mg/dL Troponin I < 0.03 (< 0.04) ng/mL B-Natriuretic Peptide 33 (Less than 100) pg/mL Urine Color (Yellow) Urine Clarity (Clear) Urine pH (5.0-8.0) pH Units Ur Specific [place] (1.010-1.025) Urine Protein (Neg-Trace) mg/dL Urine Glucose (UA) (Normal) mg/dL Urine Ketones (Negative) mg/dL Urine Blood (Negative) Urine Nitrite (Negative) Urine Bilirubin (Negative) Urine Urobilinogen (Normal) mg/dL Ur Leukocyte Esterase (Negative) 04/30/19 Range/Units 14:30 WBC (4.3-11.1) K/mcL RBC (4.19-5.50) M/mcL Hgb (12.9-16.9) g/dL Hct (37.5-50.1) % MCV (83.0-100.0) fL MCH (28.0-33.3) pg MCHC (31.6-35.5) g/dL RDW (11.5-14.5) % Plt Count (140-400) K/mcL MPV (9.4-12.4) fL Immature Gran % (0-4) % Seg Neutrophils % % Lymphocytes % % Monocytes % % Eosinophils % % Basophils % % Neutrophils # (1.6-8.9) K/mcL Lymphocytes # (0.6-4.6) K/mcL Monocytes # (0.0-1.3) K/mcL Eosinophils # (0.0-0.6) K/mcL Basophils # (0.0-0.2) K/mcL Sodium (136-145) mEq/L Potassium (3.5-5.1) mEq/L Chloride (98-107) mEq/L Carbon Dioxide (23-29) mEq/L BUN (8-23) mg/dL Creatinine (0.70-1.30) mg/dL Est GFR ( Amer) (> 60) Est GFR (Non-Af Amer) (> 60) BUN/Creatinine Ratio (6-26) Glucose (70-105) mg/dL Calculated Osmolality (280-300) Calcium (8.6-10.3) mg/dL Troponin I (< 0.04) ng/mL B-Natriuretic Peptide (Less than 100) pg/mL Urine Color Yellow (Yellow) Urine Clarity Clear (Clear) Urine pH 7.5 (5.0-8.0) pH Units Ur Specific [place] 1.006 L (1.010-1.025) Urine Protein Negative (Neg-Trace) mg/dL Urine Glucose (UA) 500 H (Normal) mg/dL Urine Ketones Negative (Negative) mg/dL Urine Blood Negative (Negative) Urine Nitrite Negative (Negative) Urine Bilirubin Negative (Negative) Urine Urobilinogen Normal (Normal) mg/dL Ur Leukocyte Esterase Negative (Negative) - Radiology Data Radiology results reviewed: Yes I reviewed the patient's radiology results. Chest X-Ray 04/30/19 12:56 IMPRESSION: No acute abnormality. D/ / Lenin Purdy MD / Lenin Purdy MD Interpreting Provider: Lenin Purdy MD Head CT 02/07/19 13:09 IMPRESSION: No acute intracranial abnormality. D/ / Carlos Martini MD / Carlos Martini MD Interpreting Provider: Carlos Martini MD
[2019-02-07 13:12] LABS: Basophils # 0.1 K/mcL (0.0-0.2); Basophils % 0.5 %; Eosinophils # 0.4 K/mcL (0.0-0.6); Eosinophils % 2.9 %; Hematocrit 42.4 % (37.5-50.1); Hemoglobin 14.7 g/dL (12.9-16.9); Immature Granulocytes % 0.6 % (0-4); Lymphocytes # 1.7 K/mcL (0.6-4.6); Lymphocytes % 13.8 %; Mean Corpuscular HGB Conc 34.7 g/dL (31.6-35.5); Mean Corpuscular Hemoglobin 29.5 pg (28.0-33.3); Mean Corpuscular Volume 85.1 fL (83.0-100.0); Monocytes # 1.1 K/mcL (0.0-1.3); Monocytes % 8.6 %; Platelet Count 227 K/mcL (140-400); Red Blood Count 4.98 M/mcL (4.19-5.50); Red Cell Distribution Width 13.1 % (11.5-14.5); Segmented Neutrophils % 73.6 %
[2019-02-07 13:30] LABS: BUN/Creatinine Ratio 12 (6-26); Blood Urea Nitrogen 13 mg/dL (8-23); Calcium 9.4 mg/dL (8.6-10.3); Carbon Dioxide 25 mEq/L (23-29); Chloride 102 mEq/L (98-107); Glucose 301 mg/dL (70-105); Osmolality,Calculated 293 (280-300); Potassium 3.6 mEq/L (3.5-5.1); Sodium 136 mEq/L (136-145); eGFR For Non-African Americans > 60 (> 60)
[2019-02-07 13:31] LABS: Troponin I < 0.03 ng/mL (< 0.04)
[2019-02-07 14:40] LABS: Bilirubin,Urine Negative (Negative); Blood,Urine Negative (Negative); Clarity,Urine Clear (Clear); Color,Urine Yellow (Yellow); Glucose,Urine (UA) 500 mg/dL (Normal); Ketones,Urine Negative (Negative); Leukocyte Esterase,Urine Negative (Negative); Nitrite,Urine Negative (Negative); PH,Urine 7.5 pH Units (5.0-8.0); Protein,Urine Negative (Neg-Trace); Specific Gravity,Urine 1.006 (1.010-1.025); Urobilinogen,Urine Normal (Normal)
--- NOTE | 2019-02-07 16:52 | Internal Med History&Physical ---
Date of Encounter: 02/07/19 Time of Encounter: 16:48 Internal Medicine - H&P: HPI Chief complaint: syncope Admitted From: Home Plans for Post Hospital Care: Home History of present illness: Mr. Jett is a 63 year old male with past medical history of HTN, recurrent syncope since 1999, HLD, CHARIS, hypokalemia, DM-II, Blanton's palsy whjo presents after a near syncopal episode. Pt states he was in the ED on Wednesday02/04/19 due to acute onset left facial droop. States he was diagnosed with blanton's palsy by ED physician and referred to neurologist for follow up visit 02/06/19. Pt was also prescribed prednisone. States he was informed by neurologist that this was likely blanton's palsy. Pt denies difficulty ambulating, trouble swallowing, speaking or visual disturbances. States while at [facility] today 02/07/19, he developed abdominal cramping and significant flushing. Pt states he went to the rest room which helped relieve the cramps, however he felt as though he was going to pass out, hence why he presented back to the ED. In ED WBC 12.2, hgb 14.7, hct 42.4, plt 227. BMP reviewed and glucose 301. Urine analysis reviewed. Non-contrast CT showed CT/CT head/brain wo con IMPRESSION: No acute intracranial abnormality. Past Med Surg Social Fam HX - Past Medical History Medical history: arthritis, cancer, diabetes, GERD, hyperlipidemia, hypertension, other Additional medical history: low potassium Psychiatric history: no psych history - Past Surgical History Surgical History: cataract, cholecystectomy, orthopedic, other Additional surgical history: Circumcision,carpal tunnel,right ankle - Social History Smoking Status: Former smoker Smokeless Tobacco Status: No Alcohol use: none Drug use: none - Family History Mother Living Status: Hx Family Cardiac Disorders: Yes (stroke) Hx Family Neuromuscular Disorders: Yes (stroke) Internal Medicine - H&P: Meds Amlodipine Besylate 10 mg PO DAILY 11/12/18 [History] Aspirin [Adult Aspirin] 81 mg PO DAILY 11/12/18 [History] Cyclobenzaprine [Flexeril] 20 mg PO HS PRN 11/12/18 [History] Lactulose [Enulose] 10 gm PO DAILY PRN 11/12/18 [History] Multivitamin [One Daily Multivitamin] 1 tab PO DAILY 11/12/18 [History] OxyCODONE/APAP 5/325 [Percocet 5/325 MG] 1 tab PO Q8H PRN 11/12/18 [History] Potassium Chloride [K-Tab ER] 20 meq PO BID 11/12/18 [History] Pravastatin Sodium 10 mg PO DAILY 11/12/18 [History] metFORMIN [Glucophage] 500 mg PO DAILY 11/12/18 [History] raNITIdine HCl [Zantac] 300 mg PO HS 11/12/18 [History] Docusate Sodium [Dok] 100 mg PO DAILY PRN 02/07/19 [History] Hydrochlorothiazide [Microzide] 12.5 mg PO DAILY 02/07/19 [History] Naproxen [Naprosyn] 500 mg PO BID 02/07/19 [History] Ramipril [Altace] 10 mg PO BID 02/07/19 [History] Allergy/AdvReac Type Severity Reaction Status Date / Time No Known Allergies Allergy Verified 11/12/18 13:06 All Systems PM: A 10-system review of systems was performed and is negative for pertinent findings except as documented above in the HPI. - Constitutional Vitals: Temp Pulse Resp BP Pulse Ox 98.5 F 84 16 174/73 100 02/07/19 12:51 02/07/19 15:29 02/07/19 15:29 02/07/19 15:29 02/07/19 15:29 General appearance: Present: A&O X 3, no acute distress Exam: . - Head Head exam: Present: atraumatic, normocephalic - Eye Eye exam: Present: PERRL, conjuntiva pink, sclera anicteric Pupils: Present: PERRL - Neck Neck exam general surgery: Present: supple, trachea midline. Absent: lymphadeno jaskaran - Respiratory Respiratory exam: Present: CTAB. Absent: accessory muscle use, rales, rhonchi, wheezes - Cardiovascular Cardiovascular exam: Present: RRR, +S1, +S2. Absent: diastolic murmur, gallop, rubs, systolic murmur - GI/Abdominal GI/Abdominal exam: Present: normal bowel sounds, soft, no peritoneal signs. Absent: distended, tenderness - Extremities Exam Extremities exam: Present: warm, radial pulses palpable and symmetrical. Ab sent: calf tenderness, cyanotic, pedal edema - Neurological Exam Neurological exam: Present: CN II-XII intact, oriented X3, no focal deficits, facial droop. Absent: pronater drift, speech deficit - Skin Skin exam: Present: dry, intact Internal Med - H&P Results - Labs CBC & Chem 7: 02/07/19 12:59 02/07/19 12:59 Labs: Short CBC 02/07/19 Range/Units 12:59 WBC 12.2 H D (4.3-11.1) K/mcL Hgb 14.7 (12.9-16.9) g/dL Hct 42.4 (37.5-50.1) % Plt Count 227 (140-400) K/mcL Neutrophils # 9.0 H (1.6-8.9) K/mcL BMP 02/07/19 12:59 Sodium 136 Potassium 3.6 Chloride 102 Carbon Dioxide 25 BUN 13 Creatinine 1.09 Glucose 301 H Calcium 9.4 Cardiac Enzymes 02/07/19 Range/Units 12:59 Troponin I < 0.03 (< 0.04) ng/mL Urine 02/07/19 Range/Units 14:30 Urine Color Yellow (Yellow) Urine Clarity Clear (Clear) Urine pH 7.5 (5.0-8.0) pH Units Ur Specific [place] 1.006 L (1.010-1.025) Urine Protein Negative (Neg-Trace) mg/dL Urine Glucose (UA) 500 H (Normal) mg/dL - Impressions ITS Impressions Chest X-Ray 02/07/19 12:56 IMPRESSION: No acute abnormality. D/ / Lenin Purdy MD / Lenin Purdy MD Interpreting Provider: Lenin Purdy MD Head CT 02/07/19 13:09 IMPRESSION: No acute intracranial abnormality. D/ / Carlos Martini MD / Carlos Martini MD Interpreting Provider: Carlos Martini MD - Assessment and Plan (1) Near syncope Current Visit: Yes Status: Acute Assessment and plan: Will monitor on telemetry. Will check carotid doppler and orthostatic BP. Will check MRI brain non-contrast. (2) Blanton's palsy Current Visit: No Status: Acute Assessment and plan: left facial droop. Pt states he has been having some nuberness and swelling on the left side of the face. Will send HSV1 and 2 IgG (3) Diabetes mellitus type 2, uncontrolled Current Visit: No Status: Chronic Assessment and plan: Metformin 500 mg PO QD Qualifiers: Qualified Code(s): E11.65 - Type 2 diabetes mellitus with hyperglycemia (4) Leukocytosis Current Visit: Yes Status: Acute Assessment and plan: likely reactive. Chest x ray and urinanalysis neg. Will repeat CBC in am. Qualifiers: Qualified Code(s): D72.829 - Elevated white blood cell count, unspecified (5) HTN (hypertension) Current Visit: No Status: Chronic Assessment and plan: Amlodipine, HCTZ, and ramipril Qualifiers: Hypertension type: essential hypertension Qualified Code(s): I10 - Essential (primary) hypertension (6) Hyperlipidemia associated with type 2 diabetes mellitus Current Visit: No Status: Chronic Assessment and plan: pravastatin - Time Spent With Patient Total time spent is greater than 50% in coordination of care (as documented) at patient's floor/unit and/or counseling patient: Greater than 35 minutes
[2019-02-07] MEDS ORDERED: Lactulose Oral Soln 20 GM/30 ML UDC PO PRN (17:42)
[2019-02-07] MEDS ORDERED: *HR* OxyCODONE/APAP 5/325 TABLET PO PRN (17:42)
[2019-02-07] MEDS ORDERED: D5% in Water 1,000 ML IVC PRN (17:46)
[2019-02-07] MEDS ORDERED: *HR* Dextrose 50 % in Water (Syg) 50 ML SYRINGE IVP PRN (17:46)
[2019-02-07] MEDS ORDERED: Dextrose Gel 15 GM/37.5 ML TUBE PO PRN ×2 (17:46)
[2019-02-07 19:27] LABS: Estimated Average Glucose 180 mg/dl; Hemoglobin A1C 7.9 %
[2019-02-07] MEDS ORDERED: Lisinopril 20 MG TABLET PO SCH (21:00)
[2019-02-07] MEDS ORDERED: Famotidine 20 MG TABLET PO SCH (21:00)
[2019-02-08] MEDS: Insulin LISPRO 300 UNITS/3 ML VIAL SQ SCH ×2 (08:35→11:29)
[2019-02-08] MEDS ORDERED: Aspirin Enteric Coated 81 MG Tablet PO SCH (09:00)
[2019-02-08] MEDS ORDERED: *HR* Metformin 500 MG TABLET PO SCH (09:00)
[2019-02-08] MEDS ORDERED: hydroCHLOROthiazide 25 MG TABLET PO SCH (09:00)
[2019-02-08] MEDS ORDERED: Multivit/Ca/Min/Fe/FA 1 TAB TABLET PO SCH (09:00)
[2019-02-08] MEDS ORDERED: amLODIPine 5 MG TABLET PO SCH (09:00)
--- NOTE | 2019-02-08 09:37 | Electrocardiograph Report ---
[place] [id number] Test Date: 2019-02-07 Pat Name: oKry Jett Department: EXAM2 Room: 3B Gender: M [employer]: : 1955 Requested By: Aiden Valente Order Number: [id number] Reading MD: Jeremy Esqueda Measurements Intervals [place] Rate: 71 P: 53 CO: 208 QRS: -9 QRSD: 107 T: 33 QT: 399 QTc: 434 Interpretive Statements Sinus rhythm Low voltage, precordial leads Electronically Signed On 02-08-2019 9:36:00 EDT by Jeremy Esqueda
[2019-02-08 11:28] VITALS: BP 158/82
--- NOTE | 2019-02-08 13:05 | Discharge Summary ---
- NOTES TO OUTPATIENT PROVIDER Notes to Outpatient Provider: f/u with PCP in one week. f/u with Neurology as scheduled before. Orders not resulted at time of discharge: Pending orders 02/07/19 17:40 EBV Quantitative PCR Routine 02/07/19 18:37 HSV 1 & 2 Glycoprotein G IgG Routine Date of Encounter: 02/08/19 Time of Encounter: 12:00 - Discharge Diagnosis (1) Near syncope Priority: Primary Status: Acute (2) Diabetes mellitus type 2, uncontrolled Priority: Secondary Status: Chronic Qualifiers: Qualified Code(s): E11.65 - Type 2 diabetes mellitus with hyperglycemia (3) HTN (hypertension) Priority: Secondary Status: Chronic Qualifiers: Hypertension type: essential hypertension Qualified Code(s): I10 - Essential (primary) hypertension (4) Hyperlipidemia associated with type 2 diabetes mellitus Priority: Secondary Status: Chronic (5) Blanton's palsy Priority: Secondary Status: Acute (6) Leukocytosis Priority: Secondary Status: Acute Qualifiers: Qualified Code(s): D72.829 - Elevated white blood cell count, unspecified Hospital course: Mr. Jett is a 63 year old male with past medical history of HTN, recurrent syncope since 1999, HLD, hypokalemia, DM-II, Blanton's palsy [facility] presented to ER after a near syncopal episode. He was recently diagnosed with blanton's palsy and seen by neurologist as an out pt. Pt stated y/d while he was at [facility] he developed abdominal cramping and significant flushing. Pt states he went to the rest room which helped relieve the cramps, however after that he felt going to pass out, hence why he presented to the ED. he was admitted in the hospital and placed him on pvc monitor. He was started on IV hydration. Patient stated his symptoms improved today. He denied anymore constipation/diarrhea/abdominal pain. His brain MRI did not show any acute infract. His near syncope mostly due to ortho static / vasovagal reaction. His carotid doppler showed non-stenotic plaque bilaterally. Will d/c him home in stable condition today. - Time Spent with Patient Total time spent providing and/or coordinating discharge services: - Discharge Medications Prescriptions: Continued Amlodipine Besylate 10 mg PO DAILY Aspirin [Adult Aspirin] 81 mg PO DAILY Lactulose [Enulose] 10 gm PO DAILY PRN PRN Reason: Constipation metFORMIN [Glucophage] 500 mg PO DAILY OxyCODONE/APAP 5/325 [Percocet 5/325 MG] 1 tab PO Q8H PRN PRN Reason: Pain Pravastatin Sodium 10 mg PO DAILY raNITIdine HCl [Zantac] 300 mg PO HS Multivitamin [One Daily Multivitamin] 1 tab PO DAILY Potassium Chloride [K-Tab ER] 20 meq PO BID Docusate Sodium [Dok] 100 mg PO DAILY PRN PRN Reason: Constipation Hydrochlorothiazide [Microzide] 12.5 mg PO DAILY Naproxen [Naprosyn] 500 mg PO BID Ramipril [Altace] 10 mg PO BID Changed Cyclobenzaprine [Flexeril] 10 mg PO HS PRN #0 PRN Reason: Muscle Spasm Home Medications: Amlodipine Besylate 10 mg PO DAILY 11/12/18 [History] Aspirin [Adult Aspirin] 81 mg PO DAILY 11/12/18 [History] Lactulose [Enulose] 10 gm PO DAILY PRN 11/12/18 [History] Multivitamin [One Daily Multivitamin] 1 tab PO DAILY 11/12/18 [History] OxyCODONE/APAP 5/325 [Percocet 5/325 MG] 1 tab PO Q8H PRN 11/12/18 [History] Potassium Chloride [K-Tab ER] 20 meq PO BID 11/12/18 [History] Pravastatin Sodium 10 mg PO DAILY 11/12/18 [History] metFORMIN [Glucophage] 500 mg PO DAILY 11/12/18 [History] raNITIdine HCl [Zantac] 300 mg PO HS 11/12/18 [History] Docusate Sodium [Dok] 100 mg PO DAILY PRN 02/07/19 [History] Hydrochlorothiazide [Microzide] 12.5 mg PO DAILY 02/07/19 [History] Naproxen [Naprosyn] 500 mg PO BID 02/07/19 [History] Ramipril [Altace] 10 mg PO BID 02/07/19 [History] Cyclobenzaprine [Flexeril] 10 mg PO HS PRN #0 02/08/19 [Rx] Allergies/Adverse Reactions: Allergy/AdvReac Type Severity Reaction Status Date / Time No Known Allergies Allergy Verified 11/12/18 13:06 Date of admission: 02/07/19 16:31 Primary care physician: Caity Umaña - Constitutional Vitals: Temp Pulse Resp BP Pulse Ox 98.8 F 80 16 158/82 98 02/08/19 11:27 02/08/19 11:27 02/08/19 11:27 02/08/19 11:27 02/08/19 11:27 General appearance: Present: cooperative, A&O X 3, no acute distress, answers questions appropriately Exam: a - Head Head exam: Present: atraumatic, normal inspection - Neck Neck exam general surgery: Present: supple - Respiratory Respiratory exam: Absent: respiratory distress, rhonchi, wheezes - Cardiovascular Cardiovascular exam: Present: RRR, +S1, +S2. Absent: tachycardia - GI/Abdominal GI/Abdominal exam: Present: normal bowel sounds, soft. Absent: rebound, rigid, tenderness - Extremities Exam Extremities exam: Present: pedal edema. Absent: calf tenderness, tenderness - Neurological Exam Neurological exam: Present: alert, oriented X3, facial droop (left). Absent: CN II-XII intact (Left facial palsy noticed) - Psychiatric Psychiatric exam: Present: normal affect, normal mood - Patient Status Disposition: Home, Self-Care Condition: Good Overall status at discharge: patient is back to baseline - Discharge Instructions Follow Up With: Caity Umaña MD [Primary Care Provider] - 02/13/19 1:45 pm Mika Marin DO [Partnered Physician] - - Diet and Activity Activity: increase activity as tolerated Diet: low salt diet
[2019-02-10 10:15] LABS: HSV 2 Glycoprotein G IgG 0.12 IV (<=0.90)
== END 2019-02-08 15:19 | disposition home or self-care (01) ==
LOC: EMEROOARM 12:49 → 3BNU 12:49 → SUATTDRO 16:31 → 3BNU 18:10
PROVIDERS: ADMIT Student in an Organized Health Care Education/Training Program; ATTEND Family Medicine

== ENCOUNTER 2020-08-30 11:59 | Observation (INO) ==
[2020-08-30 13:01] LABS: BUN/Creatinine Ratio 13 (6-26); Blood Urea Nitrogen 13 mg/dL (8-23); Calcium 8.7 mg/dL (8.6-10.3); Carbon Dioxide 25 mEq/L (23-29); Chloride 103 mEq/L (98-107); Glucose 247 mg/dL (70-105); Osmolality,Calculated 292 (280-300); Potassium 3.6 mEq/L (3.5-5.1); Sodium 137 mEq/L (136-145); Troponin I < 0.03 ng/mL (< 0.04); eGFR For African Americans > 60 (> 60); eGFR For Non-African Americans > 60 (> 60)
[2020-08-30] MEDS ORDERED: Isovue-370 500 ML BOTTLE IVP ONE (13:08)
[2020-08-30 13:27] LABS: Basophils # 0.1 K/mcL (0.0-0.2); Basophils % 0.8 %; Eosinophils # 0.2 K/mcL (0.0-0.6); Eosinophils % 3.8 %; Hematocrit 20.4 % (37.5-50.1); Immature Granulocytes % 0.3 % (0-4); Lymphocytes # 1.2 K/mcL (0.6-4.6); Lymphocytes % 19.6 %; Mean Corpuscular HGB Conc 29.4 g/dL (31.6-35.5); Mean Corpuscular Hemoglobin 21.9 pg (28.0-33.3); Mean Corpuscular Volume 74.5 fL (83.0-100.0); Mean Platelet Volume 10.3 fL (9.4-12.4); Monocytes # 0.8 K/mcL (0.0-1.3); Monocytes % 13.1 %; Platelet Count 302 K/mcL (140-400); Red Blood Count 2.74 M/mcL (4.19-5.50); Red Cell Distribution Width 14.2 % (11.5-14.5); Segmented Neutrophils % 62.4 %; White Blood Count 6.3 K/mcL (4.3-11.1)
[2020-08-30] MEDS ORDERED: Naloxone 0.4 MG/ML INJ IVP PRN (16:15)
[2020-08-30] MEDS ORDERED: Ondansetron 4 MG/2 ML VIAL IVP PRN (16:15)
[2020-08-30] MEDS ORDERED: Dextrose Gel 15 GM/37.5 ML TUBE PO PRN ×2 (16:44)
[2020-08-30] MEDS ORDERED: *HR* Dextrose 50 % in Water (Vial) 50 ML VIAL IVP PRN (16:44)
[2020-08-30] MEDS ORDERED: D5% in Water 1,000 ML IVC PRN (16:44)
[2020-08-30] MEDS ORDERED: 0.9 % Sodium Chloride 1,000 ML IVC SCH (16:45)
[2020-08-30] MEDS ORDERED: 0.9 % Sodium Chloride 250 ML ONE ×2 (16:45→20:44)
[2020-08-30] MEDS ORDERED: Pantoprazole 40 MG VIAL IVP SCH (18:00)
[2020-08-30] MEDS: Insulin LISPRO 300 UNITS/3 ML VIAL SQ SCH (22:54)
[2020-08-31] MEDS: Pantoprazole 40 MG VIAL IVP SCH ×2 (00:14→15:08)
[2020-08-31] MEDS: Insulin LISPRO 300 UNITS/3 ML VIAL SQ SCH ×4 (00:15→21:00)
[2020-08-31 02:06] LABS: Hemoglobin 7.8 g/dL (12.9-16.9)
[2020-08-31 08:38] LABS: Hematocrit 26.5 % (37.5-50.1); Hemoglobin 8.2 g/dL (12.9-16.9); Mean Corpuscular HGB Conc 30.9 g/dL (31.6-35.5); Mean Corpuscular Hemoglobin 23.4 pg (28.0-33.3); Mean Corpuscular Volume 75.7 fL (83.0-100.0); Mean Platelet Volume 10.5 fL (9.4-12.4); Platelet Count 314 K/mcL (140-400); Red Cell Distribution Width 14.6 % (11.5-14.5); White Blood Count 7.2 K/mcL (4.3-11.1)
[2020-08-31 08:58] LABS: BUN/Creatinine Ratio 9 (6-26); Blood Urea Nitrogen 8 mg/dL (8-23); Calcium 8.6 mg/dL (8.6-10.3); Carbon Dioxide 28 mEq/L (23-29); Chloride 104 mEq/L (98-107); Glucose 140 mg/dL (70-105); Osmolality,Calculated 285 (280-300); Potassium 3.3 mEq/L (3.5-5.1); Sodium 137 mEq/L (136-145); eGFR For African Americans > 60 (> 60); eGFR For Non-African Americans > 60 (> 60)
[2020-08-31] MEDS: amLODIPine 5 MG TABLET PO SCH (15:08)
[2020-08-31] MEDS: lisinopriL 20 MG TABLET PO SCH (15:08)
[2020-08-31 18:50] LABS: Hematocrit 29.2 % (37.5-50.1); Hemoglobin 8.7 g/dL (12.9-16.9)
[2020-08-31] MEDS: Melatonin 3 MG TABLET PO SCH (20:31)
[2020-09-01] MEDS: Pantoprazole 40 MG VIAL IVP SCH ×2 (02:09→13:32)
[2020-09-01 06:49] LABS: Hematocrit 28.4 % (37.5-50.1); Hemoglobin 8.6 g/dL (12.9-16.9); Mean Corpuscular HGB Conc 30.3 g/dL (31.6-35.5); Mean Corpuscular Hemoglobin 23.2 pg (28.0-33.3); Mean Corpuscular Volume 76.5 fL (83.0-100.0); Mean Platelet Volume 10.2 fL (9.4-12.4); Platelet Count 319 K/mcL (140-400); Red Blood Count 3.71 M/mcL (4.19-5.50); Red Cell Distribution Width 14.7 % (11.5-14.5); White Blood Count 8.3 K/mcL (4.3-11.1)
[2020-09-01 07:09] LABS: BUN/Creatinine Ratio 7 (6-26); Blood Urea Nitrogen 6 mg/dL (8-23); Calcium 8.5 mg/dL (8.6-10.3); Carbon Dioxide 27 mEq/L (23-29); Chloride 104 mEq/L (98-107); Glucose 187 mg/dL (70-105); Osmolality,Calculated 287 (280-300); Potassium 3.3 mEq/L (3.5-5.1); Sodium 137 mEq/L (136-145); eGFR For African Americans > 60 (> 60); eGFR For Non-African Americans > 60 (> 60)
[2020-09-01] MEDS: Insulin LISPRO 300 UNITS/3 ML VIAL SQ SCH ×4 (07:41→20:25)
[2020-09-01] MEDS ORDERED: *HR* Propofol 200 MG/20 ML VIAL IVP ONE ×2 (08:18→09:06)
[2020-09-01] MEDS ORDERED: Lidocaine -MPF 2% 2 ML VIAL ONE (08:18)
[2020-09-01] MEDS: Multivit/Ca/Min/Fe/FA 1 TAB TABLET PO SCH (09:37)
[2020-09-01] MEDS: amLODIPine 5 MG TABLET PO SCH (09:37)
[2020-09-01] MEDS: lisinopriL 20 MG TABLET PO SCH (09:38)
[2020-09-01] MEDS: Melatonin 3 MG TABLET PO SCH (20:24)
[2020-09-02] MEDS: Pantoprazole 40 MG VIAL IVP SCH ×2 (00:38→12:25)
[2020-09-02 05:22] LABS: Hematocrit 28.4 % (37.5-50.1); Hemoglobin 8.4 g/dL (12.9-16.9); Mean Corpuscular HGB Conc 29.6 g/dL (31.6-35.5); Mean Corpuscular Hemoglobin 22.9 pg (28.0-33.3); Mean Corpuscular Volume 77.4 fL (83.0-100.0); Mean Platelet Volume 10.5 fL (9.4-12.4); Platelet Count 312 K/mcL (140-400); Red Blood Count 3.67 M/mcL (4.19-5.50); Red Cell Distribution Width 14.9 % (11.5-14.5); White Blood Count 8.1 K/mcL (4.3-11.1)
[2020-09-02 05:36] LABS: BUN/Creatinine Ratio 10 (6-26); Blood Urea Nitrogen 11 mg/dL (8-23); Calcium 8.7 mg/dL (8.6-10.3); Carbon Dioxide 28 mEq/L (23-29); Chloride 106 mEq/L (98-107); Glucose 165 mg/dL (70-105); Osmolality,Calculated 289 (280-300); Potassium 3.7 mEq/L (3.5-5.1); Sodium 138 mEq/L (136-145); eGFR For African Americans > 60 (> 60); eGFR For Non-African Americans > 60 (> 60)
[2020-09-02] MEDS: Multivit/Ca/Min/Fe/FA 1 TAB TABLET PO SCH (08:11)
[2020-09-02] MEDS: lisinopriL 20 MG TABLET PO SCH (08:11)
[2020-09-02] MEDS: Insulin LISPRO 300 UNITS/3 ML VIAL SQ SCH ×2 (08:11→12:23)
[2020-09-02] MEDS: amLODIPine 5 MG TABLET PO SCH (08:11)
[2020-09-02 10:36] VITALS: BP 150/73
== END 2020-09-02 12:32 | disposition home or self-care (01) ==
LOC: 3ANU 11:59 → EMEROOARM 11:59 → 3ANU 18:48
PROVIDERS: ADMIT Student in an Organized Health Care Education/Training Program; ATTEND Student in an Organized Health Care Education/Training Program

== ENCOUNTER 2021-08-13 16:29 | Observation (INO) ==
[2021-08-13] MEDS ORDERED: Isovue-370 500 ML BOTTLE IVP ONE (16:44)
[2021-08-13] MEDS ORDERED: 0.9 % Sodium Chloride 1,000 ML IVC ONE (16:44)
[2021-08-13 16:56] LABS: Hematocrit 36.6 % (37.5-50.1); Hemoglobin 11.3 g/dL (12.9-16.9); Mean Corpuscular HGB Conc 30.9 g/dL (31.6-35.5); Mean Corpuscular Volume 74.4 fL (83.0-100.0); Mean Platelet Volume 10.3 fL (9.4-12.4); Platelet Count 319 K/mcL (140-400); Red Blood Count 4.92 M/mcL (4.19-5.50); Red Cell Distribution Width 14.5 % (11.5-14.5); White Blood Count 9.6 K/mcL (4.3-11.1)
[2021-08-13 17:03] LABS: INR 1.2; Prothrombin Time 12.9 Seconds (9.4-12.1)
[2021-08-13 17:20] LABS: Troponin I 0.04 ng/mL (< 0.04)
[2021-08-13 17:48] LABS: Bilirubin,Urine Negative (Negative); Blood,Urine Negative (Negative); Clarity,Urine Clear (Clear); Color,Urine Light-Yellow (Yellow); Glucose,Urine (UA) 70 mg/dL (Normal); Hyaline Casts,Urine Few per lpf (None Seen); Ketones,Urine Negative (Negative); Leukocyte Esterase,Urine Negative (Negative); Mucus,Urine Few per lpf (None-Few); Nitrite,Urine Negative (Negative); Protein,Urine 100 mg/dL (Neg-Trace); RBC,Urine 0-3 per hpf (0-3); Specific Gravity,Urine 1.021 (1.010-1.025); Urobilinogen,Urine Normal (Normal)
[2021-08-13] MEDS ORDERED: MOM Conc 10 ML UD.LIQ PO PRN (18:01)
[2021-08-13] MEDS ORDERED: Naloxone 0.4 MG/ML INJ IVP PRN (18:01)
[2021-08-13] MEDS ORDERED: Ondansetron 4 MG/2 ML VIAL IVP PRN (18:01)
[2021-08-13] MEDS ORDERED: Acetaminophen 325 MG TABLET PO PRN (18:01)
[2021-08-13] MEDS ORDERED: Melatonin 3 MG TABLET PO PRN (18:01)
[2021-08-13] MEDS ORDERED: Gadolinium Contrast Agent (WT Based) IV PRN (18:01)
[2021-08-13] MEDS ORDERED: Perflutren Lipid Microsphere 1.3 ML in 0.9 % Sodium Chloride 8.7 ML IVP PRN (18:01)
[2021-08-13] MEDS ORDERED: Mag Hydrox/Al Hydrox/Simeth 30 ML UDC PO PRN (18:01)
[2021-08-13 18:06] LABS: BUN/Creatinine Ratio 10 (6-26); Blood Urea Nitrogen 17 mg/dL (8-23); Calcium 9.6 mg/dL (8.6-10.3); Carbon Dioxide 25 mEq/L (23-29); Chloride 98 mEq/L (98-107); Creatine Kinase 86 Units/L (30-223); Ethanol < 10 mg/dL (Less than 10); Glucose 241 mg/dL (70-105); Osmolality,Calculated 289 (280-300); Potassium 3.6 mEq/L (3.5-5.1); Sodium 135 mEq/L (136-145); eGFR For African Americans 46 (> 60); eGFR For Non-African Americans 38 (> 60)
[2021-08-13] MEDS: Ringers Solution, Lactated 1,000 ML IVC SCH (20:57)
[2021-08-14 05:11] LABS: Hematocrit 34.9 % (37.5-50.1); Hemoglobin 10.9 g/dL (12.9-16.9); Mean Corpuscular HGB Conc 31.2 g/dL (31.6-35.5); Mean Corpuscular Hemoglobin 23.1 pg (28.0-33.3); Mean Corpuscular Volume 74.1 fL (83.0-100.0); Mean Platelet Volume 10.8 fL (9.4-12.4); Platelet Count 339 K/mcL (140-400); Red Blood Count 4.71 M/mcL (4.19-5.50); Red Cell Distribution Width 14.4 % (11.5-14.5); White Blood Count 9.3 K/mcL (4.3-11.1)
[2021-08-14 05:32] LABS: BUN/Creatinine Ratio 13 (6-26); Blood Urea Nitrogen 15 mg/dL (8-23); Calcium 9.1 mg/dL (8.6-10.3); Carbon Dioxide 27 mEq/L (23-29); Chloride 101 mEq/L (98-107); Chol/HDL Ratio 4.8 (0-4.9); Cholesterol 153 mg/dL (< 200); Glucose 225 mg/dL (70-105); HDL Cholesterol 32 mg/dL (40-59); LDL Cholesterol,Calculated 93 mg/dL (< 100); Magnesium 1.9 mg/dL (1.6-2.6); Osmolality,Calculated 294 (280-300); Potassium 3.6 mEq/L (3.5-5.1); Sodium 138 mEq/L (136-145); Triglycerides 140 mg/dL (< 150); eGFR For African Americans > 60 (> 60); eGFR For Non-African Americans > 60 (> 60)
[2021-08-14 06:25] LABS: Estimated Average Glucose 171 mg/dl; Hemoglobin A1C 7.6 %
[2021-08-14] MEDS ORDERED: *HR* Enoxaparin 40 MG/0.4 ML SYRINGE SQ SCH (07:00)
[2021-08-14] MEDS ORDERED: Lactulose Oral Soln 20 GM/30 ML UDC PO PRN (07:19)
[2021-08-14] MEDS ORDERED: *HR* Dextrose 50 % in Water (Syg) 50 ML SYRINGE IVP PRN (07:24)
[2021-08-14] MEDS ORDERED: D5% in Water 1,000 ML IVC PRN (07:24)
[2021-08-14] MEDS ORDERED: Dextrose Gel 15 GM/37.5 ML TUBE PO PRN ×2 (07:24)
[2021-08-14] MEDS ORDERED: Aspirin Enteric Coated 81 MG Tablet PO SCH (09:00)
[2021-08-14] MEDS ORDERED: lisinopriL 20 MG TABLET PO SCH (09:00)
[2021-08-14] MEDS: Ringers Solution, Lactated 1,000 ML IVC SCH (09:03)
[2021-08-14] MEDS: Insulin LISPRO 300 UNITS/3 ML VIAL SUBQ SCH ×2 (09:04→12:27)
[2021-08-14 15:39] VITALS: BP 170/85; PULSE 90; TEMP 98.1; O2SAT 99
[2021-08-14] MEDS ORDERED: Insulin LISPRO 300 UNITS/3 ML VIAL SUBQ SCH (21:00)
== END 2021-08-14 16:57 | disposition home or self-care (01) ==
LOC: 3BNU 16:29 → EMEROOARM 16:29 → SUATTDRO 18:02 → 3BNU 19:55
PROVIDERS: ADMIT Internal Medicine; ATTEND Family Medicine

== ENCOUNTER 2021-10-28 17:25 | Inpatient (IN) ==
[2021-10-28 18:16] LABS: Basophils % 0.5 %; Eosinophils # 0.2 K/mcL (0.0-0.6); Eosinophils % 2.9 %; Hematocrit 37.2 % (37.5-50.1); Hemoglobin 11.5 g/dL (12.9-16.9); Immature Granulocytes % 0.4 % (0-4); Lymphocytes # 1.5 K/mcL (0.6-4.6); Lymphocytes % 18.7 %; Mean Corpuscular HGB Conc 30.9 g/dL (31.6-35.5); Mean Corpuscular Hemoglobin 22.9 pg (28.0-33.3); Mean Corpuscular Volume 74.1 fL (83.0-100.0); Mean Platelet Volume 10.9 fL (9.4-12.4); Monocytes # 0.8 K/mcL (0.0-1.3); Monocytes % 9.1 %; Neutrophils # 5.6 K/mcL (1.6-8.9); Platelet Count 262 K/mcL (140-400); Red Blood Count 5.02 M/mcL (4.19-5.50); Red Cell Distribution Width 19.9 % (11.5-14.5); Segmented Neutrophils % 68.4 %; White Blood Count 8.2 K/mcL (4.3-11.1)
[2021-10-28 18:38] LABS: BUN/Creatinine Ratio 10 (6-26); Blood Urea Nitrogen 16 mg/dL (8-23); Calcium 9.3 mg/dL (8.6-10.3); Carbon Dioxide 26 mEq/L (23-29); Chloride 103 mEq/L (98-107); Glucose 134 mg/dL (70-105); Osmolality,Calculated 285 (280-300); Potassium 3.9 mEq/L (3.5-5.1); Sodium 136 mEq/L (136-145); Troponin I 0.03 ng/mL (< 0.04); eGFR For African Americans 50 (> 60); eGFR For Non-African Americans 41 (> 60)
[2021-10-28] MEDS ORDERED: Ibuprofen 600 MG TABLET PO ONE (20:11)
[2021-10-28 21:57] LABS: Acetaminophen < 10 mcg/mL (10-20); Alanine Aminotransferase 14 Units/L (7-52); Albumin 4.1 g/dL (3.5-5.7); Albumin/Globulin Ratio 1.2 (1.1-2.2); Alkaline Phosphatase 99 Units/L (34-104); Aspartate Amino Transferase 17 Units/L (13-39); Bilirubin,Direct 0.2 mg/dL (0.0-0.2); Bilirubin,Indirect 0.5 mg/dL (0.0-1.0); Bilirubin,Total 0.7 mg/dL (0.3-1.0); Chol/HDL Ratio 4.7 (0-4.9); Cholesterol 145 mg/dL (< 200); Ethanol < 10 mg/dL (Less than 10); Globulin 3.4 g/dL (2.4-3.5); HDL Cholesterol 31 mg/dL (40-59); LDL Cholesterol,Calculated 64 mg/dL (< 100); Salicylate < 2.5 mg/dL (15.0-30.0); Total Protein 7.5 g/dL (6.4-8.9); Triglycerides 249 mg/dL (< 150)
[2021-10-28 21:59] LABS: Amphetamine Screen,Urine Negative ng/mL (Cutoff=1000); Barbiturate Screen,Urine Negative ng/mL (Cutoff=200); Benzodiazepines Screen,Urine Negative ng/mL (Cutoff=200); Cannabinoid Screen,Urine Negative ng/mL (Cutoff = 50); Cocaine Screen,Urine Negative ng/mL (Cutoff= 300); Opiate Screen,Urine Negative ng/mL (Cutoff=300); Phencyclidine Screen,Urine Negative ng/mL (Cutoff=25)
[2021-10-28 22:00] LABS: Bilirubin,Urine Negative (Negative); Blood,Urine Negative (Negative); Clarity,Urine Clear (Clear); Color,Urine Colorless (Yellow); Glucose,Urine (UA) 150 mg/dL (Normal); Hyaline Casts,Urine Few per lpf (None Seen); Ketones,Urine Negative (Negative); Leukocyte Esterase,Urine Negative (Negative); Mucus,Urine Few per lpf (None-Few); Nitrite,Urine Negative (Negative); PH,Urine 6.5 pH Units (5.0-8.0); Protein,Urine Trace mg/dL (Neg-Trace); RBC,Urine 0-3 per hpf (0-3); Squamous Epithelial Cell,Urine Few per hpf (None-Few); Urobilinogen,Urine Normal (Normal); WBC,Urine 0-3 per hpf (0-3)
[2021-10-28 22:09] LABS: Thyroid Stimulating Hormone 0.783 mcIU/mL (0.340-5.600)
[2021-10-28 22:10] LABS: Estimated Average Glucose 183 mg/dl
[2021-10-29] MEDS ORDERED: Isovue-370 500 ML BOTTLE IVP ONE (00:05)
[2021-10-29] MEDS ORDERED: *HR* Labetalol 20 MG/4 ML SYRINGE IVP ONE (00:46)
[2021-10-29] MEDS ORDERED: Melatonin 3 MG TABLET PO PRN (01:23)
[2021-10-29] MEDS ORDERED: Ondansetron 4 MG/2 ML VIAL IVP PRN (01:23)
[2021-10-29] MEDS ORDERED: Naloxone 0.4 MG/ML INJ IVP PRN (01:23)
[2021-10-29 01:48] LABS: INR 1.1; Prothrombin Time 12.4 Seconds (9.4-12.1)
[2021-10-29 01:50] LABS: Phosphorous 3.6 mg/dL (2.7-4.5)
[2021-10-29 01:50] LABS: Activated Partial Thrombo Time 31.5 Seconds (26.0-36.0)
[2021-10-29 01:55] LABS: Influenza A PCR Negative (Negative); Influenza B PCR Negative (Negative); Resp. Syncytial Virus PCR Negative (Negative)
[2021-10-29 01:59] LABS: SARS-CoV-2 by PCR (In House) Negative (Negative)
[2021-10-29] MEDS: *HR* Labetalol 20 MG/4 ML SYRINGE IVP PRN ×2 (03:46→20:31)
[2021-10-29] MEDS ORDERED: Insulin LISPRO 300 UNITS/3 ML VIAL SUBQ SCH (04:00)
[2021-10-29 06:27] LABS: Basophils % 0.4 %; Eosinophils # 0.1 K/mcL (0.0-0.6); Eosinophils % 0.9 %; Hematocrit 35.7 % (37.5-50.1); Hemoglobin 11.4 g/dL (12.9-16.9); Immature Granulocytes % 0.3 % (0-4); Lymphocytes # 1.9 K/mcL (0.6-4.6); Lymphocytes % 17.7 %; Mean Corpuscular HGB Conc 31.9 g/dL (31.6-35.5); Mean Corpuscular Hemoglobin 23.3 pg (28.0-33.3); Mean Corpuscular Volume 72.9 fL (83.0-100.0); Mean Platelet Volume 10.8 fL (9.4-12.4); Monocytes # 0.8 K/mcL (0.0-1.3); Monocytes % 7.7 %; Neutrophils # 7.7 K/mcL (1.6-8.9); Platelet Count 269 K/mcL (140-400); Red Cell Distribution Width 19.7 % (11.5-14.5); White Blood Count 10.6 K/mcL (4.3-11.1)
[2021-10-29 06:37] LABS: BUN/Creatinine Ratio 10 (6-26); Blood Urea Nitrogen 14 mg/dL (8-23); Calcium 9.1 mg/dL (8.6-10.3); Carbon Dioxide 26 mEq/L (23-29); Chloride 102 mEq/L (98-107); Glucose 167 mg/dL (70-105); Magnesium 1.8 mg/dL (1.6-2.6); Osmolality,Calculated 290 (280-300); Phosphorous 3.7 mg/dL (2.7-4.5); Potassium 3.3 mEq/L (3.5-5.1); Sodium 138 mEq/L (136-145); eGFR For African Americans > 60 (> 60); eGFR For Non-African Americans 52 (> 60)
[2021-10-29] MEDS: Aspirin 81 MG TAB.CHEW PO SCH (07:58)
[2021-10-29] MEDS: Insulin LISPRO 300 UNITS/3 ML VIAL SUBQ SCH ×4 (07:59→20:42)
[2021-10-29] MEDS ORDERED: Perflutren Lipid Microsphere 1.3 ML in 0.9 % Sodium Chloride 8.7 ML IVP PRN (13:57)
[2021-10-29] MEDS ORDERED: VISINE TEARS DROPS 15 ML BOTH EYES PRN (15:17)
[2021-10-29] MEDS ORDERED: NON-FORMULARY MEDICATION 1 EACH EACH (Pravastatin Sodium 10 MG Tablet) PO SCH (15:30)
[2021-10-29] MEDS: amLODIPine 5 MG TABLET PO SCH (17:32)
[2021-10-29] MEDS: Acetaminophen 325 MG TABLET PO PRN (23:56)
[2021-10-30 03:24] LABS: BUN/Creatinine Ratio 14 (6-26); Blood Urea Nitrogen 15 mg/dL (8-23); Calcium 9.2 mg/dL (8.6-10.3); Carbon Dioxide 27 mEq/L (23-29); Chloride 104 mEq/L (98-107); Glucose 186 mg/dL (70-105); Osmolality,Calculated 284 (280-300); Potassium 3.3 mEq/L (3.5-5.1); Sodium 134 mEq/L (136-145); eGFR For African Americans > 60 (> 60); eGFR For Non-African Americans > 60 (> 60)
[2021-10-30] MEDS: *HR* Labetalol 20 MG/4 ML SYRINGE IVP PRN ×3 (05:13→21:56)
[2021-10-30] MEDS: amLODIPine 5 MG TABLET PO SCH (08:03)
[2021-10-30] MEDS: Aspirin 81 MG TAB.CHEW PO SCH (08:03)
[2021-10-30] MEDS: Insulin LISPRO 300 UNITS/3 ML VIAL SUBQ SCH ×3 (08:04→20:39)
[2021-10-30] MEDS ORDERED: lisinopriL 20 MG TABLET PO SCH (09:00)
[2021-10-30] MEDS ORDERED: Perflutren Lipid Microsphere 1.3 ML in 0.9 % Sodium Chloride 8.7 ML IVP PRN (13:28)
[2021-10-30] MEDS ORDERED: amLODIPine 5 MG TABLET PO ONE (15:21)
[2021-10-31] MEDS: *HR* Labetalol 20 MG/4 ML SYRINGE IVP PRN (01:30)
[2021-10-31] MEDS: Insulin LISPRO 300 UNITS/3 ML VIAL SUBQ SCH ×5 (01:47→19:58)
[2021-10-31 02:19] LABS: BUN/Creatinine Ratio 15 (6-26); Blood Urea Nitrogen 16 mg/dL (8-23); Calcium 9.4 mg/dL (8.6-10.3); Carbon Dioxide 26 mEq/L (23-29); Chloride 105 mEq/L (98-107); Glucose 173 mg/dL (70-105); Magnesium 1.8 mg/dL (1.6-2.6); Osmolality,Calculated 285 (280-300); Potassium 3.4 mEq/L (3.5-5.1); Sodium 135 mEq/L (136-145); eGFR For African Americans > 60 (> 60); eGFR For Non-African Americans > 60 (> 60)
[2021-10-31] MEDS: Magnesium Oxide 400 MG TABLET PO SCH (09:48)
[2021-10-31] MEDS: Aspirin 81 MG TAB.CHEW PO SCH (09:48)
[2021-10-31] MEDS: lisinopriL 20 MG TABLET PO SCH (09:48)
[2021-10-31] MEDS: amLODIPine 5 MG TABLET PO SCH (09:49)
[2021-10-31] MEDS ORDERED: carvediloL 6.25 MG TABLET PO ONE (15:01)
[2021-10-31] MEDS: Acetaminophen 325 MG TABLET PO PRN (19:58)
[2021-11-01 07:40] LABS: BUN/Creatinine Ratio 21 (6-26); Blood Urea Nitrogen 24 mg/dL (8-23); Calcium 9.3 mg/dL (8.6-10.3); Carbon Dioxide 24 mEq/L (23-29); Chloride 105 mEq/L (98-107); Glucose 144 mg/dL (70-105); Osmolality,Calculated 293 (280-300); Potassium 3.8 mEq/L (3.5-5.1); Sodium 138 mEq/L (136-145); eGFR For African Americans > 60 (> 60); eGFR For Non-African Americans > 60 (> 60)
[2021-11-01] MEDS ORDERED: carvediloL 6.25 MG TABLET PO SCH (09:00)
[2021-11-01] MEDS ORDERED: hydrALAZINE 25 MG TABLET PO SCH ×2 (09:00→21:00)
[2021-11-01] MEDS: Magnesium Oxide 400 MG TABLET PO SCH (09:49)
[2021-11-01] MEDS: lisinopriL 20 MG TABLET PO SCH (09:49)
[2021-11-01] MEDS: amLODIPine 5 MG TABLET PO SCH (09:49)
[2021-11-01] MEDS: Aspirin 81 MG TAB.CHEW PO SCH (09:49)
[2021-11-01] MEDS: Insulin LISPRO 300 UNITS/3 ML VIAL SUBQ SCH ×2 (09:50→14:06)
[2021-11-01 11:56] VITALS: TEMP 97.7; O2SAT 98
[2021-11-01] MEDS ORDERED: hydrALAZINE 25 MG TABLET PO ONE (13:16)
[2021-11-01 14:46] VITALS: PULSE 94
[2021-11-01 15:56] VITALS: BP 131/94
== END 2021-11-01 17:50 | disposition home or self-care (01) | DRG 69 ==
LOC: 3NENU 17:25 → EMEROOARM 17:25 → SUATTDRO 10-29 02:02 → 3NENU 10-29 02:42
PROVIDERS: ADMIT Internal Medicine; ATTEND Internal Medicine

== ENCOUNTER 2021-11-15 16:29 | Inpatient (IN) ==
[2021-11-15 17:55] LABS: Basophils # 0.1 K/mcL (0.0-0.2); Basophils % 0.3 %; Eosinophils # 0.1 K/mcL (0.0-0.6); Eosinophils % 0.5 %; Hematocrit 38.8 % (37.5-50.1); Hemoglobin 12.2 g/dL (12.9-16.9); Immature Granulocytes % 0.5 % (0-4); Lymphocytes # 1.1 K/mcL (0.6-4.6); Lymphocytes % 4.5 %; Mean Corpuscular HGB Conc 31.4 g/dL (31.6-35.5); Mean Corpuscular Hemoglobin 23.8 pg (28.0-33.3); Mean Corpuscular Volume 75.8 fL (83.0-100.0); Mean Platelet Volume 11.1 fL (9.4-12.4); Platelet Count 380 K/mcL (140-400); Red Blood Count 5.12 M/mcL (4.19-5.50); Red Cell Distribution Width 22.1 % (11.5-14.5); Segmented Neutrophils % 90.2 %
[2021-11-15 17:56] LABS: Neutrophils # 21.7 K/mcL (1.6-8.9)
[2021-11-15 18:13] LABS: Platelet Estimate Normal (Normal)
[2021-11-15 18:15] LABS: Albumin 3.9 g/dL (3.5-5.7); Albumin/Globulin Ratio 1.1 (1.1-2.2); Calcium 9.8 mg/dL (8.6-10.3); Globulin 3.5 g/dL (2.4-3.5); Potassium 4.2 mEq/L (3.5-5.1); Total Protein 7.4 g/dL (6.4-8.9)
[2021-11-15] MEDS ORDERED: Ringers Solution, Lactated 1,000 ML IVC ONE (18:24)
[2021-11-15] MEDS ORDERED: *HR* OxyCODONE Immed Rel 5 MG TABLET PO PRN (21:31)
[2021-11-15] MEDS ORDERED: Naloxone 0.4 MG/ML INJ IVP PRN (21:31)
[2021-11-15] MEDS ORDERED: Melatonin 3 MG TABLET PO PRN (21:31)
[2021-11-15] MEDS ORDERED: 0.9 % Sodium Chloride 1,000 ML IVC SCH (21:45)
[2021-11-15] MEDS ORDERED: *HR* Dextrose 50 % in Water (Syg) 50 ML SYRINGE IVP PRN (22:20)
[2021-11-15] MEDS ORDERED: D5% in Water 1,000 ML IVC PRN (22:20)
[2021-11-15] MEDS ORDERED: Dextrose Gel 15 GM/37.5 ML TUBE PO PRN ×2 (22:20)
[2021-11-15] MEDS: 0.9 % Sodium Chloride 1,000 ML IVC SCH (23:29)
[2021-11-15] MEDS: *HR* HYDROcodone/Acet 5/325 mg TABLET PO PRN (23:29)
[2021-11-16] MEDS: Insulin LISPRO 300 UNITS/3 ML VIAL SUBQ SCH ×5 (00:42→21:29)
[2021-11-16 01:22] LABS: Hematocrit 37.8 % (37.5-50.1); Hemoglobin 11.8 g/dL (12.9-16.9); Mean Corpuscular HGB Conc 31.2 g/dL (31.6-35.5); Mean Corpuscular Hemoglobin 23.9 pg (28.0-33.3); Mean Corpuscular Volume 76.7 fL (83.0-100.0); Mean Platelet Volume 11.3 fL (9.4-12.4); Platelet Count 351 K/mcL (140-400); Red Blood Count 4.93 M/mcL (4.19-5.50); Red Cell Distribution Width 22.4 % (11.5-14.5)
[2021-11-16 01:41] LABS: Calcium 10.1 mg/dL (8.6-10.3); Magnesium 2.1 mg/dL (1.6-2.6); Potassium 4.3 mEq/L (3.5-5.1)
[2021-11-16] MEDS ORDERED: 0.9 % Sodium Chloride 1,000 ML IV ONE ×3 (01:46→13:10)
[2021-11-16 03:15] LABS: Estimated Average Glucose 177 mg/dl; Hemoglobin A1C 7.8 %
[2021-11-16] MEDS: *HR* HYDROcodone/Acet 5/325 mg TABLET PO PRN ×2 (06:07→19:47)
[2021-11-16] MEDS: *HR* Heparin 5,000 UNIT/ML VIAL SQ SCH ×2 (06:07→16:37)
[2021-11-16] MEDS: Piperacillin/Tazobactam 3.375 GM in 0.9 % Sodium Chloride Mini Bag 100 ML IVPB SCH ×2 (08:33→16:36)
[2021-11-16] MEDS: 0.9 % Sodium Chloride 1,000 ML IVC SCH (13:00)
[2021-11-16] MEDS ORDERED: Ketorolac 30 MG/ML VIAL IVP ONE (16:49)
[2021-11-17] MEDS: Piperacillin/Tazobactam 3.375 GM in 0.9 % Sodium Chloride Mini Bag 100 ML IVPB SCH ×3 (00:10→16:23)
[2021-11-17] MEDS ORDERED: 0.9 % Sodium Chloride 1,000 ML IV ONE (00:35)
[2021-11-17] MEDS: Acetaminophen 325 MG TABLET PO PRN ×2 (00:41→19:55)
[2021-11-17] MEDS: *HR* Heparin 5,000 UNIT/ML VIAL SQ SCH ×2 (05:59→16:24)
[2021-11-17] MEDS: *HR* HYDROcodone/Acet 5/325 mg TABLET PO PRN (06:04)
[2021-11-17] MEDS ORDERED: VISINE TEARS DROPS 15 ML BOTH EYES PRN ×2 (07:24→09:19)
[2021-11-17] MEDS ORDERED: Ondansetron ODT 4 MG TAB.RAPDIS SL PRN (07:24)
[2021-11-17] MEDS ORDERED: 0.9 % Sodium Chloride 1,000 ML IVC SCH (07:30)
[2021-11-17] MEDS: Insulin LISPRO 300 UNITS/3 ML VIAL SUBQ SCH ×4 (08:03→23:08)
[2021-11-17] MEDS: Aspirin Enteric Coated 81 MG Tablet PO SCH (08:03)
[2021-11-17 08:40] LABS: Hematocrit 30.8 % (37.5-50.1); Mean Corpuscular HGB Conc 32.5 g/dL (31.6-35.5); Mean Corpuscular Hemoglobin 24.4 pg (28.0-33.3); Mean Corpuscular Volume 75.3 fL (83.0-100.0); Mean Platelet Volume 11.2 fL (9.4-12.4); Platelet Count 277 K/mcL (140-400); Red Blood Count 4.09 M/mcL (4.19-5.50); White Blood Count 18.4 K/mcL (4.3-11.1)
[2021-11-17] MEDS ORDERED: Artificial Tears SOLN 15 ML BOTTLE BOTH EYES SCH (09:00)
[2021-11-17 09:04] LABS: Lymphocytes # 1.5 K/mcL (0.6-4.6); Monocytes # 1.7 K/mcL (0.0-1.3); Neutrophils # 14.2 K/mcL (1.6-8.9)
[2021-11-17 09:08] LABS: Anisocytosis 3+ (Not Present); Microcytosis Present (Not Present); Platelet Estimate Normal (Normal)
[2021-11-17 09:47] LABS: Calcium 8.5 mg/dL (8.6-10.3); Potassium 5.1 mEq/L (3.5-5.1)
[2021-11-17] MEDS: Artificial Tears SOLN 15 ML BOTTLE BOTH EYES SCH ×4 (11:32→19:55)
[2021-11-17] MEDS: 0.9 % Sodium Chloride 1,000 ML IVC SCH (19:55)
[2021-11-18] MEDS: Piperacillin/Tazobactam 3.375 GM in 0.9 % Sodium Chloride Mini Bag 100 ML IVPB SCH ×3 (00:46→16:16)
[2021-11-18] MEDS ORDERED: *HR* OxyCODONE Immed Rel 5 MG TABLET PO ONE (00:56)
[2021-11-18] MEDS ORDERED: *HR* HYDROmorphone (PF) 1 MG/ML SYRINGE IVP ONE (04:10)
[2021-11-18] MEDS: *HR* Heparin 5,000 UNIT/ML VIAL SQ SCH ×2 (05:09→16:18)
[2021-11-18 06:10] LABS: Hematocrit 30.2 % (37.5-50.1); Hemoglobin 9.7 g/dL (12.9-16.9); Mean Corpuscular HGB Conc 32.1 g/dL (31.6-35.5); Mean Corpuscular Volume 74.8 fL (83.0-100.0); Mean Platelet Volume 11.3 fL (9.4-12.4); Platelet Count 258 K/mcL (140-400); Red Blood Count 4.04 M/mcL (4.19-5.50); Red Cell Distribution Width 23.5 % (11.5-14.5); White Blood Count 17.6 K/mcL (4.3-11.1)
[2021-11-18 06:34] LABS: Amylase 20 Units/L (29-103); Calcium 8.4 mg/dL (8.6-10.3); Lipase 8 Units/L (11-82); Potassium 4.3 mEq/L (3.5-5.1)
[2021-11-18 06:55] LABS: Anisocytosis 3+ (Not Present); Burr Cells 1+ (Not Present); Lymphocytes # 1.4 K/mcL (0.6-4.6); Monocytes # 1.4 K/mcL (0.0-1.3); Neutrophils # 14.8 K/mcL (1.6-8.9); Platelet Estimate Normal (Normal); Poikilocytosis 1+ (Not Present)
[2021-11-18 06:56] LABS: Macrocytosis Present (Not Present)
[2021-11-18] MEDS: amLODIPine 5 MG TABLET PO SCH (08:44)
[2021-11-18] MEDS: hydrALAZINE 25 MG TABLET PO SCH ×3 (08:45→19:46)
[2021-11-18] MEDS: Aspirin Enteric Coated 81 MG Tablet PO SCH (08:45)
[2021-11-18] MEDS: Insulin LISPRO 300 UNITS/3 ML VIAL SUBQ SCH ×4 (08:45→20:54)
[2021-11-18] MEDS: Artificial Tears SOLN 15 ML BOTTLE BOTH EYES SCH ×4 (08:46→19:47)
[2021-11-18] MEDS: Acetaminophen 325 MG TABLET PO PRN (08:51)
[2021-11-18] MEDS: 0.9 % Sodium Chloride 1,000 ML IVC SCH (16:17)
[2021-11-18] MEDS: Ondansetron ODT 4 MG TAB.RAPDIS SL PRN (19:48)
[2021-11-18] MEDS: Ringers Solution, Lactated 1,000 ML IVC SCH (21:07)
[2021-11-19] MEDS: Piperacillin/Tazobactam 3.375 GM in 0.9 % Sodium Chloride Mini Bag 100 ML IVPB SCH ×4 (00:14→23:43)
[2021-11-19 01:19] LABS: Basophils % 0.2 %; Eosinophils % 0.2 %; Hemoglobin 9.8 g/dL (12.9-16.9); Immature Granulocytes % 0.3 % (0-4); Lymphocytes # 0.8 K/mcL (0.6-4.6); Lymphocytes % 4.3 %; Mean Corpuscular HGB Conc 31.6 g/dL (31.6-35.5); Mean Corpuscular Hemoglobin 23.7 pg (28.0-33.3); Mean Corpuscular Volume 74.9 fL (83.0-100.0); Mean Platelet Volume 11.1 fL (9.4-12.4); Monocytes % 5.5 %; Neutrophils # 15.8 K/mcL (1.6-8.9); Platelet Count 285 K/mcL (140-400); Red Blood Count 4.14 M/mcL (4.19-5.50); Red Cell Distribution Width 23.5 % (11.5-14.5); Segmented Neutrophils % 89.5 %; White Blood Count 17.7 K/mcL (4.3-11.1)
[2021-11-19 01:35] LABS: Anisocytosis 1+ (Not Present); Reactive Lymphocytes Present (Not Present)
[2021-11-19 01:36] LABS: Poikilocytosis 1+ (Not Present)
[2021-11-19 01:38] LABS: BUN/Creatinine Ratio 28 (6-26); Blood Urea Nitrogen 33 mg/dL (8-23); Calcium 8.1 mg/dL (8.6-10.3); Carbon Dioxide 22 mEq/L (23-29); Chloride 109 mEq/L (98-107); Glucose 187 mg/dL (70-105); Osmolality,Calculated 302 (280-300); Potassium 3.8 mEq/L (3.5-5.1); Sodium 140 mEq/L (136-145); eGFR For African Americans > 60 (> 60); eGFR For Non-African Americans > 60 (> 60)
[2021-11-19] MEDS: *HR* Heparin 5,000 UNIT/ML VIAL SQ SCH ×3 (05:00→21:27)
[2021-11-19] MEDS: hydrALAZINE 25 MG TABLET PO SCH ×3 (05:13→21:27)
[2021-11-19] MEDS: Artificial Tears SOLN 15 ML BOTTLE BOTH EYES SCH ×4 (07:21→21:26)
[2021-11-19] MEDS: amLODIPine 5 MG TABLET PO SCH (07:22)
[2021-11-19] MEDS: Aspirin Enteric Coated 81 MG Tablet PO SCH (07:22)
[2021-11-19] MEDS: Insulin LISPRO 300 UNITS/3 ML VIAL SUBQ SCH ×4 (08:09→21:17)
[2021-11-19] MEDS: Ringers Solution, Lactated 1,000 ML IVC SCH (14:15)
[2021-11-19] MEDS: Ondansetron ODT 4 MG TAB.RAPDIS SL PRN (23:41)
[2021-11-20 01:27] LABS: Basophils % 0.2 %; Eosinophils # 0.1 K/mcL (0.0-0.6); Eosinophils % 0.5 %; Hematocrit 27.3 % (37.5-50.1); Immature Granulocytes % 0.7 % (0-4); Lymphocytes # 0.8 K/mcL (0.6-4.6); Mean Corpuscular Hemoglobin 24.5 pg (28.0-33.3); Mean Corpuscular Volume 74.2 fL (83.0-100.0); Mean Platelet Volume 10.3 fL (9.4-12.4); Monocytes # 1.4 K/mcL (0.0-1.3); Neutrophils # 11.3 K/mcL (1.6-8.9); Platelet Count 277 K/mcL (140-400); Red Blood Count 3.68 M/mcL (4.19-5.50); Red Cell Distribution Width 23.3 % (11.5-14.5); Segmented Neutrophils % 82.6 %; White Blood Count 13.7 K/mcL (4.3-11.1)
[2021-11-20 01:44] LABS: BUN/Creatinine Ratio 32 (6-26); Blood Urea Nitrogen 36 mg/dL (8-23); Calcium 8.2 mg/dL (8.6-10.3); Carbon Dioxide 23 mEq/L (23-29); Chloride 109 mEq/L (98-107); Glucose 255 mg/dL (70-105); Osmolality,Calculated 305 (280-300); Potassium 3.7 mEq/L (3.5-5.1); Sodium 139 mEq/L (136-145); eGFR For African Americans > 60 (> 60); eGFR For Non-African Americans > 60 (> 60)
[2021-11-20 02:19] LABS: Anisocytosis 3+ (Not Present); Platelet Estimate Normal (Normal); Reactive Lymphocytes Present (Not Present)
[2021-11-20] MEDS: Ringers Solution, Lactated 1,000 ML IVC SCH ×2 (03:41→16:00)
[2021-11-20] MEDS: *HR* Heparin 5,000 UNIT/ML VIAL SQ SCH ×3 (05:00→20:04)
[2021-11-20] MEDS: Piperacillin/Tazobactam 3.375 GM in 0.9 % Sodium Chloride Mini Bag 100 ML IVPB SCH ×3 (07:27→23:22)
[2021-11-20] MEDS: Aspirin Enteric Coated 81 MG Tablet PO SCH (07:27)
[2021-11-20] MEDS: amLODIPine 5 MG TABLET PO SCH (07:27)
[2021-11-20] MEDS: Artificial Tears SOLN 15 ML BOTTLE BOTH EYES SCH ×4 (07:27→20:03)
[2021-11-20] MEDS: hydrALAZINE 25 MG TABLET PO SCH ×3 (07:27→20:03)
[2021-11-20] MEDS: Insulin LISPRO 300 UNITS/3 ML VIAL SUBQ SCH ×4 (07:28→19:58)
[2021-11-20] MEDS: Acetaminophen 325 MG TABLET PO PRN (13:34)
[2021-11-20] MEDS: Ondansetron ODT 4 MG TAB.RAPDIS SL PRN (16:00)
[2021-11-20] MEDS ORDERED: Prochlorperazine 10 MG/2 ML VIAL IVP PRN (20:58)
[2021-11-21] MEDS ORDERED: Isovue-370 500 ML BOTTLE IVP ONE (00:09)
[2021-11-21] MEDS: 0.9 % Sodium Chloride 1,000 ML IVC SCH ×4 (02:54→21:17)
[2021-11-21 05:50] LABS: Hematocrit 28.3 % (37.5-50.1); Hemoglobin 9.1 g/dL (12.9-16.9); Mean Corpuscular HGB Conc 32.2 g/dL (31.6-35.5); Mean Corpuscular Hemoglobin 24.3 pg (28.0-33.3); Mean Corpuscular Volume 75.5 fL (83.0-100.0); Mean Platelet Volume 10.5 fL (9.4-12.4); Platelet Count 324 K/mcL (140-400); Red Blood Count 3.75 M/mcL (4.19-5.50); White Blood Count 13.7 K/mcL (4.3-11.1)
[2021-11-21] MEDS: *HR* Heparin 5,000 UNIT/ML VIAL SQ SCH ×4 (06:02→19:54)
[2021-11-21 06:15] LABS: BUN/Creatinine Ratio 25 (6-26); Blood Urea Nitrogen 31 mg/dL (8-23); Calcium 8.3 mg/dL (8.6-10.3); Carbon Dioxide 27 mEq/L (23-29); Chloride 108 mEq/L (98-107); Glucose 277 mg/dL (70-105); Osmolality,Calculated 310 (280-300); Potassium 3.5 mEq/L (3.5-5.1); Sodium 142 mEq/L (136-145); eGFR For African Americans > 60 (> 60); eGFR For Non-African Americans 59 (> 60)
[2021-11-21] MEDS: Artificial Tears SOLN 15 ML BOTTLE BOTH EYES SCH ×4 (07:40→19:54)
[2021-11-21] MEDS: Piperacillin/Tazobactam 3.375 GM in 0.9 % Sodium Chloride Mini Bag 100 ML IVPB SCH ×2 (07:40→17:13)
[2021-11-21] MEDS: Insulin LISPRO 300 UNITS/3 ML VIAL SUBQ SCH ×4 (07:41→21:15)
[2021-11-21] MEDS: amLODIPine 5 MG TABLET PO SCH (07:41)
[2021-11-21] MEDS: hydrALAZINE 25 MG TABLET PO SCH (07:41)
[2021-11-21] MEDS: Aspirin Enteric Coated 81 MG Tablet PO SCH (07:41)
[2021-11-21] MEDS ORDERED: *HR* Propofol 200 MG/20 ML VIAL IVP ONE (08:03)
[2021-11-21] MEDS ORDERED: *HR* FentaNYL (PF) 100 MCG/2 ML VIAL ONE (08:03)
[2021-11-21] MEDS ORDERED: *HR* Midazolam HCl 2 MG/2 ML VIAL ONE (08:03)
[2021-11-21] MEDS ORDERED: *HR* HYDROmorphone PF 0.5 MG/0.5 ML SYRINGE IVP PRN (08:42)
[2021-11-21] MEDS ORDERED: Ondansetron 4 MG/2 ML VIAL IVP PRN ×2 (08:42→13:50)
[2021-11-21] MEDS ORDERED: *HR* Vasopressin 20 UNIT/ML VIAL ONE (09:35)
[2021-11-21] MEDS ORDERED: Lidocaine -MPF 2% 5 ML VIAL ONE (09:47)
[2021-11-21] MEDS ORDERED: Ondansetron 4 MG/2 ML VIAL ONE (09:47)
[2021-11-21] MEDS ORDERED: Lidocaine HCL 4 ML Topical Solution (Laryng-O-Jet Kit Sterile Pak) TP ONE (09:47)
[2021-11-21] MEDS ORDERED: *HR* Rocuronium Bromide 50 MG/5 ML VIAL ONE ×2 (09:47→10:11)
[2021-11-21] MEDS ORDERED: Albumin Human 5% 12.5 GM/250 ML IV.SOLN ONE (09:56)
[2021-11-21] MEDS ORDERED: Calcium Gluconate 1,000 MG/10 ML VIAL ONE (10:56)
[2021-11-21] MEDS ORDERED: *HR* HYDROMORPHONE 2 MG/ML VIAL ONE (11:08)
[2021-11-21] MEDS ORDERED: Sugammadex Sodium 200 MG/2 ML VIAL IV ONE (11:08)
[2021-11-21] MEDS ORDERED: *HR* Labetalol 20 MG/4 ML SYRINGE IVP ONE (11:22)
[2021-11-21] MEDS ORDERED: D5% in Water 1,000 ML IVC PRN (13:50)
[2021-11-21] MEDS ORDERED: Prochlorperazine 10 MG/2 ML VIAL IVP PRN (13:50)
[2021-11-21] MEDS ORDERED: Naloxone 0.4 MG/ML INJ IVP PRN (13:50)
[2021-11-21] MEDS ORDERED: *HR* Dextrose 50 % in Water (Syg) 50 ML SYRINGE IVP PRN (13:50)
[2021-11-21] MEDS: Fluconazole 400 MG/200 ML 400 MG/200 ML BAG IVPB SCH (14:22)
[2021-11-21] MEDS: Pantoprazole 40 MG VIAL IVP SCH (14:22)
[2021-11-21] MEDS ORDERED: Morphine PCA 30 MG/ 30 ML 30 ML PCA.VIAL IVC PRN (14:30)
[2021-11-21] MEDS: Acetaminophen IV 1,000 MG/100 ML BAG IVPB SCH (17:14)
[2021-11-22] MEDS: Acetaminophen IV 1,000 MG/100 ML BAG IVPB SCH ×5 (00:59→23:36)
[2021-11-22] MEDS: Piperacillin/Tazobactam 3.375 GM in 0.9 % Sodium Chloride Mini Bag 100 ML IVPB SCH ×4 (01:05→23:35)
[2021-11-22] MEDS: *HR* Heparin 5,000 UNIT/ML VIAL SQ SCH ×3 (05:32→22:34)
[2021-11-22] MEDS: 0.9 % Sodium Chloride 1,000 ML IVC SCH (05:33)
[2021-11-22 05:42] LABS: Hematocrit 26.2 % (37.5-50.1); Hemoglobin 8.1 g/dL (12.9-16.9); Mean Corpuscular HGB Conc 30.9 g/dL (31.6-35.5); Mean Corpuscular Hemoglobin 23.5 pg (28.0-33.3); Mean Corpuscular Volume 75.9 fL (83.0-100.0); Mean Platelet Volume 10.4 fL (9.4-12.4); Platelet Count 338 K/mcL (140-400); Red Blood Count 3.45 M/mcL (4.19-5.50)
[2021-11-22 05:59] LABS: BUN/Creatinine Ratio 21 (6-26); Blood Urea Nitrogen 23 mg/dL (8-23); Calcium 7.7 mg/dL (8.6-10.3); Carbon Dioxide 26 mEq/L (23-29); Chloride 113 mEq/L (98-107); Glucose 233 mg/dL (70-105); Osmolality,Calculated 315 (280-300); Potassium 3.4 mEq/L (3.5-5.1); Sodium 147 mEq/L (136-145); eGFR For African Americans > 60 (> 60); eGFR For Non-African Americans > 60 (> 60)
[2021-11-22] MEDS: Pantoprazole 40 MG VIAL IVP SCH (10:17)
[2021-11-22] MEDS: D5% in Water 1,000 ML IVC SCH ×2 (10:18→22:35)
[2021-11-22] MEDS: Artificial Tears SOLN 15 ML BOTTLE BOTH EYES SCH ×4 (10:18→22:36)
[2021-11-22] MEDS: Insulin LISPRO 300 UNITS/3 ML VIAL SUBQ SCH ×4 (10:19→20:58)
[2021-11-22] MEDS: Fluconazole 400 MG/200 ML 400 MG/200 ML BAG IVPB SCH (11:17)
[2021-11-23] MEDS: Acetaminophen IV 1,000 MG/100 ML BAG IVPB SCH ×4 (05:34→22:44)
[2021-11-23] MEDS: *HR* Heparin 5,000 UNIT/ML VIAL SQ SCH ×3 (05:34→23:28)
[2021-11-23] MEDS: Piperacillin/Tazobactam 3.375 GM in 0.9 % Sodium Chloride Mini Bag 100 ML IVPB SCH ×3 (07:54→23:28)
[2021-11-23] MEDS: Pantoprazole 40 MG VIAL IVP SCH (07:56)
[2021-11-23] MEDS: Artificial Tears SOLN 15 ML BOTTLE BOTH EYES SCH ×4 (07:56→22:45)
[2021-11-23] MEDS: Insulin LISPRO 300 UNITS/3 ML VIAL SUBQ SCH ×4 (07:57→22:46)
[2021-11-23] MEDS: Fluconazole 400 MG/200 ML 400 MG/200 ML BAG IVPB SCH (07:58)
[2021-11-23 09:40] LABS: BUN/Creatinine Ratio 16 (6-26); Blood Urea Nitrogen 15 mg/dL (8-23); Calcium 7.4 mg/dL (8.6-10.3); Carbon Dioxide 23 mEq/L (23-29); Chloride 110 mEq/L (98-107); Glucose 206 mg/dL (70-105); Magnesium 1.6 mg/dL (1.6-2.6); Osmolality,Calculated 299 (280-300); Potassium 3.1 mEq/L (3.5-5.1); Sodium 141 mEq/L (136-145); eGFR For African Americans > 60 (> 60); eGFR For Non-African Americans > 60 (> 60)
[2021-11-23] MEDS ORDERED: *HR* Labetalol 20 MG/4 ML SYRINGE IVP PRN (11:26)
[2021-11-23] MEDS: D5% in Water 1,000 ML IVC SCH (23:27)
[2021-11-24 01:19] LABS: Basophils % 0.3 %; Eosinophils # 0.2 K/mcL (0.0-0.6); Hematocrit 27.1 % (37.5-50.1); Hemoglobin 8.6 g/dL (12.9-16.9); Immature Granulocytes % 0.8 % (0-4); Lymphocytes # 1.2 K/mcL (0.6-4.6); Lymphocytes % 10.8 %; Mean Corpuscular HGB Conc 31.7 g/dL (31.6-35.5); Mean Corpuscular Hemoglobin 24.4 pg (28.0-33.3); Mean Platelet Volume 10.3 fL (9.4-12.4); Monocytes # 0.9 K/mcL (0.0-1.3); Monocytes % 8.1 %; Neutrophils # 8.8 K/mcL (1.6-8.9); Platelet Count 446 K/mcL (140-400); Red Blood Count 3.52 M/mcL (4.19-5.50); White Blood Count 11.3 K/mcL (4.3-11.1)
[2021-11-24 01:39] LABS: BUN/Creatinine Ratio 19 (6-26); Blood Urea Nitrogen 18 mg/dL (8-23); Calcium 7.2 mg/dL (8.6-10.3); Carbon Dioxide 22 mEq/L (23-29); Chloride 111 mEq/L (98-107); Glucose 165 mg/dL (70-105); Magnesium 1.6 mg/dL (1.6-2.6); Osmolality,Calculated 300 (280-300); Phosphorous 3.3 mg/dL (2.7-4.5); Potassium 3.2 mEq/L (3.5-5.1); Sodium 142 mEq/L (136-145); eGFR For African Americans > 60 (> 60); eGFR For Non-African Americans > 60 (> 60)
[2021-11-24] MEDS: D5% in Water 1,000 ML IVC SCH ×2 (01:52→13:14)
[2021-11-24] MEDS: Acetaminophen IV 1,000 MG/100 ML BAG IVPB SCH ×2 (06:04→12:00)
[2021-11-24] MEDS: *HR* Heparin 5,000 UNIT/ML VIAL SQ SCH ×3 (06:04→20:14)
[2021-11-24] MEDS: Piperacillin/Tazobactam 3.375 GM in 0.9 % Sodium Chloride Mini Bag 100 ML IVPB SCH ×3 (09:18→23:57)
[2021-11-24] MEDS: Insulin LISPRO 300 UNITS/3 ML VIAL SUBQ SCH ×4 (09:18→20:09)
[2021-11-24] MEDS: Fluconazole 400 MG/200 ML 400 MG/200 ML BAG IVPB SCH (09:21)
[2021-11-24] MEDS: Pantoprazole 40 MG VIAL IVP SCH (09:24)
[2021-11-24] MEDS: Artificial Tears SOLN 15 ML BOTTLE BOTH EYES SCH ×4 (09:24→20:14)
[2021-11-24] MEDS ORDERED: Acetaminophen IV 1,000 MG/100 ML BAG IVPB PRN (14:07)
[2021-11-25 01:13] LABS: Basophils % 0.3 %; Eosinophils # 0.2 K/mcL (0.0-0.6); Eosinophils % 2.7 %; Hematocrit 26.6 % (37.5-50.1); Hemoglobin 8.4 g/dL (12.9-16.9); Immature Granulocytes % 0.7 % (0-4); Lymphocytes # 1.1 K/mcL (0.6-4.6); Lymphocytes % 14.4 %; Mean Corpuscular HGB Conc 31.6 g/dL (31.6-35.5); Mean Corpuscular Hemoglobin 24.3 pg (28.0-33.3); Mean Corpuscular Volume 76.9 fL (83.0-100.0); Mean Platelet Volume 10.2 fL (9.4-12.4); Monocytes # 0.7 K/mcL (0.0-1.3); Monocytes % 9.4 %; Neutrophils # 5.6 K/mcL (1.6-8.9); Platelet Count 469 K/mcL (140-400); Red Blood Count 3.46 M/mcL (4.19-5.50); Red Cell Distribution Width 22.8 % (11.5-14.5); Segmented Neutrophils % 72.5 %; White Blood Count 7.7 K/mcL (4.3-11.1)
[2021-11-25 01:28] LABS: BUN/Creatinine Ratio 14 (6-26); Blood Urea Nitrogen 13 mg/dL (8-23); Calcium 7.1 mg/dL (8.6-10.3); Carbon Dioxide 21 mEq/L (23-29); Chloride 110 mEq/L (98-107); Glucose 215 mg/dL (70-105); Magnesium 1.8 mg/dL (1.6-2.6); Osmolality,Calculated 293 (280-300); Sodium 138 mEq/L (136-145); eGFR For African Americans > 60 (> 60); eGFR For Non-African Americans > 60 (> 60)
[2021-11-25] MEDS: D5% in Water 1,000 ML IVC SCH (02:26)
[2021-11-25] MEDS: *HR* Heparin 5,000 UNIT/ML VIAL SQ SCH ×3 (04:09→20:32)
[2021-11-25] MEDS: Artificial Tears SOLN 15 ML BOTTLE BOTH EYES SCH ×4 (07:37→20:32)
[2021-11-25] MEDS: Pantoprazole 40 MG VIAL IVP SCH (07:37)
[2021-11-25] MEDS: Insulin LISPRO 300 UNITS/3 ML VIAL SUBQ SCH ×4 (07:38→20:35)
[2021-11-25] MEDS: Piperacillin/Tazobactam 3.375 GM in 0.9 % Sodium Chloride Mini Bag 100 ML IVPB SCH ×2 (07:38→16:19)
[2021-11-25] MEDS: Fluconazole 400 MG/200 ML 400 MG/200 ML BAG IVPB SCH (07:39)
[2021-11-25] MEDS: Ringers Solution, Lactated 1,000 ML IVC SCH (16:20)
[2021-11-26] MEDS: Piperacillin/Tazobactam 3.375 GM in 0.9 % Sodium Chloride Mini Bag 100 ML IVPB SCH ×2 (00:02→08:28)
[2021-11-26 02:15] LABS: Basophils % 0.4 %; Eosinophils # 0.3 K/mcL (0.0-0.6); Eosinophils % 3.5 %; Hematocrit 26.4 % (37.5-50.1); Hemoglobin 8.1 g/dL (12.9-16.9); Immature Granulocytes % 0.8 % (0-4); Lymphocytes # 1.1 K/mcL (0.6-4.6); Lymphocytes % 15.9 %; Mean Corpuscular HGB Conc 30.7 g/dL (31.6-35.5); Mean Corpuscular Hemoglobin 24.3 pg (28.0-33.3); Mean Platelet Volume 9.6 fL (9.4-12.4); Monocytes # 0.8 K/mcL (0.0-1.3); Monocytes % 11.2 %; Neutrophils # 4.8 K/mcL (1.6-8.9); Nucleated Red Blood Cells 0.4 /100 WBC (0); Platelet Count 455 K/mcL (140-400); Red Blood Count 3.34 M/mcL (4.19-5.50); Red Cell Distribution Width 22.8 % (11.5-14.5); Segmented Neutrophils % 68.2 %; White Blood Count 7.1 K/mcL (4.3-11.1)
[2021-11-26 02:30] LABS: BUN/Creatinine Ratio 12 (6-26); Blood Urea Nitrogen 10 mg/dL (8-23); Carbon Dioxide 20 mEq/L (23-29); Chloride 109 mEq/L (98-107); Glucose 140 mg/dL (70-105); Magnesium 1.5 mg/dL (1.6-2.6); Osmolality,Calculated 285 (280-300); Phosphorous 2.3 mg/dL (2.7-4.5); Potassium 3.2 mEq/L (3.5-5.1); Sodium 137 mEq/L (136-145); eGFR For African Americans > 60 (> 60); eGFR For Non-African Americans > 60 (> 60)
[2021-11-26] MEDS: *HR* Heparin 5,000 UNIT/ML VIAL SQ SCH ×3 (05:16→20:59)
[2021-11-26] MEDS ORDERED: Potassium Chloride Elixir 20 MEQ/15 ML UDC PO ONE (07:26)
[2021-11-26] MEDS: Ringers Solution, Lactated 1,000 ML IVC SCH ×3 (08:08→15:23)
[2021-11-26] MEDS: Insulin LISPRO 300 UNITS/3 ML VIAL SUBQ SCH ×4 (08:27→20:58)
[2021-11-26] MEDS: Pantoprazole 40 MG VIAL IVP SCH (08:27)
[2021-11-26] MEDS: Artificial Tears SOLN 15 ML BOTTLE BOTH EYES SCH ×4 (08:28→21:03)
[2021-11-26] MEDS ORDERED: Dextrose Gel 15 GM/37.5 ML TUBE PO PRN ×2 (13:16)
[2021-11-26] MEDS ORDERED: Acetaminophen 325 MG TABLET PO PRN (13:25)
[2021-11-26] MEDS: *HR* HYDROcodone/Acet 5/325 mg TABLET PO PRN (15:32)
[2021-11-27] MEDS: *HR* HYDROcodone/Acet 5/325 mg TABLET PO PRN ×3 (00:06→16:50)
[2021-11-27 01:55] LABS: Eosinophils # 0.2 K/mcL (0.0-0.6); Hemoglobin 7.7 g/dL (12.9-16.9); Mean Corpuscular HGB Conc 30.8 g/dL (31.6-35.5); Mean Corpuscular Hemoglobin 24.1 pg (28.0-33.3); Mean Corpuscular Volume 78.1 fL (83.0-100.0); Mean Platelet Volume 9.5 fL (9.4-12.4); Platelet Count 454 K/mcL (140-400); Red Cell Distribution Width 22.5 % (11.5-14.5); White Blood Count 7.4 K/mcL (4.3-11.1)
[2021-11-27 02:08] LABS: BUN/Creatinine Ratio 13 (6-26); Blood Urea Nitrogen 9 mg/dL (8-23); Calcium 7.1 mg/dL (8.6-10.3); Carbon Dioxide 20 mEq/L (23-29); Chloride 112 mEq/L (98-107); Glucose 181 mg/dL (70-105); Magnesium 1.7 mg/dL (1.6-2.6); Osmolality,Calculated 293 (280-300); Phosphorous 2.4 mg/dL (2.7-4.5); Potassium 3.5 mEq/L (3.5-5.1); Sodium 140 mEq/L (136-145); eGFR For African Americans > 60 (> 60); eGFR For Non-African Americans > 60 (> 60)
[2021-11-27] MEDS: *HR* Heparin 5,000 UNIT/ML VIAL SQ SCH ×3 (05:11→19:43)
[2021-11-27 05:19] LABS: Basophils # 0.2 K/mcL (0.0-0.2); Monocytes # 0.6 K/mcL (0.0-1.3); Neutrophils # 5.5 K/mcL (1.6-8.9)
[2021-11-27 05:20] LABS: Platelet Estimate Increased (Normal); Reactive Lymphocytes Present (Not Present)
[2021-11-27] MEDS: Aspirin Enteric Coated 81 MG Tablet PO SCH (08:31)
[2021-11-27] MEDS: lisinopriL 20 MG TABLET PO SCH (08:31)
[2021-11-27] MEDS: Artificial Tears SOLN 15 ML BOTTLE BOTH EYES SCH ×4 (08:37→19:43)
[2021-11-27] MEDS: Insulin LISPRO 300 UNITS/3 ML VIAL SUBQ SCH ×4 (08:38→19:41)
[2021-11-27 18:49] LABS: Adenovirus F 40/41 PCR Not detected (Not detect); Astrovirus PCR Not detected (Not detect); C.difficile Toxin A/B Gene PCR Not detected (Not detect); Campylobacter by PCR Not detected (Not detect); Cryptosporidium by PCR Not detected (Not detect); Cyclospora cayetanensis PCR Not detected (Not detect); E. coli O157 by PCR Not detected (Not detect); Entamoeba histolytica PCR Not detected (Not detect); Enteroaggregative E.coli(EAEC) Not detected (Not detect); Enteropathogenic E.coli(EPEC) Not detected (Not detect); Enterotoxigenic E.coli (ETEC) Not detected (Not detect); Giardia lamblia PCR Not detected (Not detect); Norovirus GI/GII PCR Not detected (Not detect); Plesiomonas shigelloides PCR Not detected (Not detect); Rotavirus A PCR Not detected (Not detect); Salmonella PCR Not detected (Not detect); Sapovirus PCR Not detected (Not detect); Shig/EnteroinvasiveE coli EIEC Not detected (Not detect); Shigalike tox-prod E coli STEC Not detected (Not detect); Vibrio PCR Not detected (Not detect); Vibrio cholerae PCR Not detected (Not detect); Yersinia enterocolitica PCR Not detected (Not detect)
[2021-11-27] MEDS ORDERED: hydrALAZINE 25 MG TABLET PO ONE (19:56)
[2021-11-27] MEDS ORDERED: traZODone 50 MG TABLET PO PRN (23:38)
[2021-11-28 02:18] LABS: Eosinophils # 0.2 K/mcL (0.0-0.6); Hematocrit 25.5 % (37.5-50.1); Mean Corpuscular HGB Conc 31.4 g/dL (31.6-35.5); Mean Corpuscular Hemoglobin 24.6 pg (28.0-33.3); Mean Corpuscular Volume 78.5 fL (83.0-100.0); Platelet Count 551 K/mcL (140-400); Red Blood Count 3.25 M/mcL (4.19-5.50); Red Cell Distribution Width 22.5 % (11.5-14.5); White Blood Count 9.1 K/mcL (4.3-11.1)
[2021-11-28 02:30] LABS: BUN/Creatinine Ratio 11 (6-26); Blood Urea Nitrogen 8 mg/dL (8-23); Calcium 7.5 mg/dL (8.6-10.3); Carbon Dioxide 23 mEq/L (23-29); Chloride 110 mEq/L (98-107); Glucose 149 mg/dL (70-105); Magnesium 1.6 mg/dL (1.6-2.6); Osmolality,Calculated 289 (280-300); Phosphorous 2.8 mg/dL (2.7-4.5); Potassium 3.8 mEq/L (3.5-5.1); Sodium 139 mEq/L (136-145); eGFR For African Americans > 60 (> 60); eGFR For Non-African Americans > 60 (> 60)
[2021-11-28] MEDS: *HR* HYDROcodone/Acet 5/325 mg TABLET PO PRN (03:04)
[2021-11-28 03:27] LABS: Lymphocytes # 0.9 K/mcL (0.6-4.6); Monocytes # 0.9 K/mcL (0.0-1.3); Neutrophils # 7.1 K/mcL (1.6-8.9); Platelet Estimate Normal (Normal); Toxic Granulation Present (Not Present)
[2021-11-28] MEDS: *HR* Heparin 5,000 UNIT/ML VIAL SQ SCH (05:24)
[2021-11-28 07:13] VITALS: BP 149/76; PULSE 112; TEMP 99.1; O2SAT 96
[2021-11-28] MEDS: lisinopriL 20 MG TABLET PO SCH (10:24)
[2021-11-28] MEDS: Aspirin Enteric Coated 81 MG Tablet PO SCH (10:25)
[2021-11-28] MEDS: Artificial Tears SOLN 15 ML BOTTLE BOTH EYES SCH ×2 (10:25→12:20)
[2021-11-28] MEDS: Insulin LISPRO 300 UNITS/3 ML VIAL SUBQ SCH ×2 (10:26→12:19)
== END 2021-11-28 12:53 | disposition home health service (06) | DRG 854 ==
LOC: 2ANU 16:29 → EMEROOARM 16:29 → SUATTDRO 21:34 → 2ANU 22:40 → SUATTDRO 11-16 18:07
PROVIDERS: ADMIT Family Medicine; ATTEND Internal Medicine

== ENCOUNTER 2021-12-02 11:46 | Inpatient (IN) ==
[2021-12-02] MEDS ORDERED: 0.9 % Sodium Chloride 1,000 ML IVC ONE (11:55)
[2021-12-02] MEDS ORDERED: Isovue-370 500 ML BOTTLE IVP ONE (12:41)
[2021-12-02 12:57] LABS: Basophils # 0.1 K/mcL (0.0-0.2); Basophils % 0.6 %; Eosinophils # 0.1 K/mcL (0.0-0.6); Hematocrit 25.3 % (37.5-50.1); Hemoglobin 7.7 g/dL (12.9-16.9); Immature Granulocytes % 0.6 % (0-4); Lymphocytes # 1.2 K/mcL (0.6-4.6); Lymphocytes % 14.6 %; Mean Corpuscular HGB Conc 30.4 g/dL (31.6-35.5); Mean Corpuscular Hemoglobin 23.9 pg (28.0-33.3); Mean Corpuscular Volume 78.6 fL (83.0-100.0); Mean Platelet Volume 9.4 fL (9.4-12.4); Monocytes # 0.7 K/mcL (0.0-1.3); Monocytes % 8.1 %; Neutrophils # 6.3 K/mcL (1.6-8.9); Platelet Count 699 K/mcL (140-400); Red Blood Count 3.22 M/mcL (4.19-5.50); Red Cell Distribution Width 21.2 % (11.5-14.5); Segmented Neutrophils % 75.1 %; White Blood Count 8.4 K/mcL (4.3-11.1)
[2021-12-02 13:44] LABS: BUN/Creatinine Ratio 9 (6-26); Blood Urea Nitrogen 7 mg/dL (8-23); Calcium 7.8 mg/dL (8.6-10.3); Carbon Dioxide 28 mEq/L (23-29); Chloride 109 mEq/L (98-107); Glucose 148 mg/dL (70-105); Osmolality,Calculated 299 (280-300); Sodium 144 mEq/L (136-145); eGFR For African Americans > 60 (> 60); eGFR For Non-African Americans > 60 (> 60)
[2021-12-02] MEDS ORDERED: Potassium Effervescent 25 MEQ TABLET.EFF PO ONE (14:45)
[2021-12-02] MEDS ORDERED: Piperacillin/Tazobactam 3.375 GM in 0.9 % Sodium Chloride Mini Bag 100 ML IVPB ONE (15:19)
[2021-12-02] MEDS ORDERED: Naloxone 0.4 MG/ML INJ IVP PRN (16:05)
[2021-12-02] MEDS ORDERED: Ondansetron 4 MG/2 ML VIAL IVP PRN (16:05)
[2021-12-02] MEDS ORDERED: Dextrose Gel 15 GM/37.5 ML TUBE PO PRN ×2 (16:06)
[2021-12-02] MEDS ORDERED: *HR* Dextrose 50 % in Water (Syg) 50 ML SYRINGE IVP PRN (16:06)
[2021-12-02] MEDS ORDERED: D5% in Water 1,000 ML IVC PRN (16:06)
[2021-12-02] MEDS: Insulin LISPRO 300 UNITS/3 ML VIAL SUBQ SCH ×2 (17:48→20:59)
[2021-12-02] MEDS: Ringers Solution, Lactated 1,000 ML IVC SCH (17:50)
[2021-12-02] MEDS ORDERED: VISINE TEARS DROPS 15 ML BOTH EYES PRN (18:20)
[2021-12-02] MEDS: Acetaminophen 325 MG TABLET PO PRN (20:58)
[2021-12-02] MEDS: hydrALAZINE 25 MG TABLET PO SCH (20:58)
[2021-12-02] MEDS: Lifitegrast [Xiidra] 1 EACH Droperette OP SCH (20:59)
[2021-12-02] MEDS: Melatonin 3 MG TABLET PO PRN (20:59)
[2021-12-03] MEDS: Piperacillin/Tazobactam 3.375 GM in 0.9 % Sodium Chloride Mini Bag 100 ML IVPB SCH ×3 (00:33→14:59)
[2021-12-03 02:46] LABS: Basophils # 0.1 K/mcL (0.0-0.2); Basophils % 0.6 %; Eosinophils # 0.2 K/mcL (0.0-0.6); Eosinophils % 1.8 %; Hematocrit 24.7 % (37.5-50.1); Hemoglobin 7.8 g/dL (12.9-16.9); Immature Granulocytes % 0.7 % (0-4); Lymphocytes # 1.1 K/mcL (0.6-4.6); Lymphocytes % 13.4 %; Mean Corpuscular HGB Conc 31.6 g/dL (31.6-35.5); Mean Corpuscular Hemoglobin 24.4 pg (28.0-33.3); Mean Corpuscular Volume 77.2 fL (83.0-100.0); Mean Platelet Volume 8.9 fL (9.4-12.4); Monocytes # 0.7 K/mcL (0.0-1.3); Monocytes % 8.1 %; Neutrophils # 6.4 K/mcL (1.6-8.9); Platelet Count 636 K/mcL (140-400); Red Cell Distribution Width 21.2 % (11.5-14.5); Segmented Neutrophils % 75.4 %; White Blood Count 8.5 K/mcL (4.3-11.1)
[2021-12-03 02:59] LABS: BUN/Creatinine Ratio 9 (6-26); Blood Urea Nitrogen 7 mg/dL (8-23); Calcium 7.8 mg/dL (8.6-10.3); Carbon Dioxide 28 mEq/L (23-29); Chloride 109 mEq/L (98-107); Glucose 184 mg/dL (70-105); Magnesium 1.7 mg/dL (1.6-2.6); Osmolality,Calculated 299 (280-300); Potassium 2.9 mEq/L (3.5-5.1); Sodium 143 mEq/L (136-145); eGFR For African Americans > 60 (> 60); eGFR For Non-African Americans > 60 (> 60)
[2021-12-03] MEDS: Ringers Solution, Lactated 1,000 ML IVC SCH (06:34)
[2021-12-03] MEDS ORDERED: Potassium Chloride Elixir 20 MEQ/15 ML UDC PO ONE (07:53)
[2021-12-03] MEDS: Insulin LISPRO 300 UNITS/3 ML VIAL SUBQ SCH ×3 (08:24→20:44)
[2021-12-03] MEDS: hydrALAZINE 25 MG TABLET PO SCH ×3 (08:28→20:44)
[2021-12-03] MEDS: amLODIPine 5 MG TABLET PO SCH (08:28)
[2021-12-03] MEDS: lisinopriL 20 MG TABLET PO SCH (08:28)
[2021-12-03] MEDS: Multivit/Ca/Min/Fe/FA 1 TAB TABLET PO SCH (08:31)
[2021-12-03] MEDS: Aspirin Enteric Coated 81 MG Tablet PO SCH (08:31)
[2021-12-03] MEDS: Lifitegrast [Xiidra] 1 EACH Droperette OP SCH (08:32)
[2021-12-03] MEDS: Acetaminophen 325 MG TABLET PO PRN ×2 (10:10→20:43)
[2021-12-03] MEDS ORDERED: Insulin LISPRO 300 UNITS/3 ML VIAL SUBQ SCH (12:00)
[2021-12-03] MEDS: Melatonin 3 MG TABLET PO PRN (20:43)
[2021-12-04] MEDS: Piperacillin/Tazobactam 3.375 GM in 0.9 % Sodium Chloride Mini Bag 100 ML IVPB SCH ×3 (01:04→16:51)
[2021-12-04 06:14] LABS: Hematocrit 25.4 % (37.5-50.1); Hemoglobin 7.7 g/dL (12.9-16.9); Mean Corpuscular HGB Conc 30.3 g/dL (31.6-35.5); Mean Corpuscular Hemoglobin 23.8 pg (28.0-33.3); Mean Corpuscular Volume 78.6 fL (83.0-100.0); Mean Platelet Volume 9.2 fL (9.4-12.4); Platelet Count 613 K/mcL (140-400); Red Blood Count 3.23 M/mcL (4.19-5.50); Red Cell Distribution Width 21.4 % (11.5-14.5); White Blood Count 7.7 K/mcL (4.3-11.1)
[2021-12-04 07:05] LABS: BUN/Creatinine Ratio 8 (6-26); Blood Urea Nitrogen 7 mg/dL (8-23); Calcium 7.9 mg/dL (8.6-10.3); Carbon Dioxide 29 mEq/L (23-29); Chloride 108 mEq/L (98-107); Glucose 140 mg/dL (70-105); Osmolality,Calculated 298 (280-300); Potassium 2.9 mEq/L (3.5-5.1); Sodium 144 mEq/L (136-145); eGFR For African Americans > 60 (> 60); eGFR For Non-African Americans > 60 (> 60)
[2021-12-04] MEDS: Insulin LISPRO 300 UNITS/3 ML VIAL SUBQ SCH ×4 (10:15→21:31)
[2021-12-04] MEDS: amLODIPine 5 MG TABLET PO SCH (10:25)
[2021-12-04] MEDS: hydrALAZINE 25 MG TABLET PO SCH ×3 (10:25→21:23)
[2021-12-04] MEDS: Multivit/Ca/Min/Fe/FA 1 TAB TABLET PO SCH (10:25)
[2021-12-04] MEDS: lisinopriL 20 MG TABLET PO SCH (10:25)
[2021-12-04] MEDS: Aspirin Enteric Coated 81 MG Tablet PO SCH (10:25)
[2021-12-04] MEDS ORDERED: Iron Sucrose Complex 200 MG in 0.9 % Sodium Chloride 100 ML IVPB ONE (11:40)
[2021-12-04] MEDS ORDERED: Ringers Solution, Lactated 1,000 ML IVC SCH (12:00)
[2021-12-04] MEDS: Chlorhexidine Rinse 15 ML MOUTHWASH MM SCH ×2 (15:27→21:23)
[2021-12-04] MEDS: Nystatin SUSP 5 ML UD.LIQ PO SCH ×2 (16:51→21:23)
[2021-12-04] MEDS: Potassium Chloride Elixir 20 MEQ/15 ML UDC PO SCH (21:23)
[2021-12-04] MEDS: Melatonin 3 MG TABLET PO PRN (23:17)
[2021-12-05] MEDS: Piperacillin/Tazobactam 3.375 GM in 0.9 % Sodium Chloride Mini Bag 100 ML IVPB SCH ×4 (00:07→23:36)
[2021-12-05] MEDS: Insulin LISPRO 300 UNITS/3 ML VIAL SUBQ SCH ×4 (07:51→21:13)
[2021-12-05] MEDS: Chlorhexidine Rinse 15 ML MOUTHWASH MM SCH ×2 (07:56→21:11)
[2021-12-05] MEDS: Nystatin SUSP 5 ML UD.LIQ PO SCH ×4 (07:56→21:11)
[2021-12-05] MEDS: hydrALAZINE 25 MG TABLET PO SCH ×3 (07:56→21:11)
[2021-12-05] MEDS: Aspirin Enteric Coated 81 MG Tablet PO SCH (07:57)
[2021-12-05] MEDS: amLODIPine 5 MG TABLET PO SCH (07:57)
[2021-12-05] MEDS: lisinopriL 20 MG TABLET PO SCH (07:57)
[2021-12-05] MEDS: Multivit/Ca/Min/Fe/FA 1 TAB TABLET PO SCH (07:57)
[2021-12-05 08:05] LABS: BUN/Creatinine Ratio 8 (6-26); Blood Urea Nitrogen 7 mg/dL (8-23); Calcium 7.9 mg/dL (8.6-10.3); Carbon Dioxide 26 mEq/L (23-29); Chloride 109 mEq/L (98-107); Glucose 145 mg/dL (70-105); Magnesium 1.8 mg/dL (1.6-2.6); Osmolality,Calculated 297 (280-300); Sodium 143 mEq/L (136-145); eGFR For African Americans > 60 (> 60); eGFR For Non-African Americans > 60 (> 60)
[2021-12-05] MEDS: Potassium Chloride Elixir 20 MEQ/15 ML UDC PO SCH ×4 (08:12→21:22)
[2021-12-05 08:39] LABS: Magnesium 1.9 mg/dL (1.6-2.6)
[2021-12-05] MEDS ORDERED: Isovue-370 500 ML BOTTLE PO ONE (11:12)
[2021-12-05] MEDS ORDERED: 0.9 % Sodium Chloride 1,000 ML IVC ONE (11:52)
[2021-12-05] MEDS ORDERED: 0.9 % Sodium Chloride 1,000 ML ONE (11:54)
[2021-12-05] MEDS ORDERED: *HR* FentaNYL (PF) 100 MCG/2 ML VIAL IVP ONE (12:05)
[2021-12-05] MEDS: Melatonin 3 MG TABLET PO PRN (21:12)
[2021-12-06 01:43] LABS: BUN/Creatinine Ratio 7 (6-26); Blood Urea Nitrogen 6 mg/dL (8-23); Calcium 7.6 mg/dL (8.6-10.3); Carbon Dioxide 28 mEq/L (23-29); Chloride 107 mEq/L (98-107); Glucose 142 mg/dL (70-105); Osmolality,Calculated 292 (280-300); Sodium 141 mEq/L (136-145); eGFR For African Americans > 60 (> 60); eGFR For Non-African Americans > 60 (> 60)
[2021-12-06] MEDS: Aspirin Enteric Coated 81 MG Tablet PO SCH (08:59)
[2021-12-06] MEDS: lisinopriL 20 MG TABLET PO SCH (08:59)
[2021-12-06] MEDS: Multivit/Ca/Min/Fe/FA 1 TAB TABLET PO SCH (08:59)
[2021-12-06] MEDS: Nystatin SUSP 5 ML UD.LIQ PO SCH ×4 (08:59→20:43)
[2021-12-06] MEDS: hydrALAZINE 25 MG TABLET PO SCH ×3 (08:59→20:41)
[2021-12-06] MEDS: amLODIPine 5 MG TABLET PO SCH (08:59)
[2021-12-06] MEDS: Piperacillin/Tazobactam 3.375 GM in 0.9 % Sodium Chloride Mini Bag 100 ML IVPB SCH ×3 (09:00→22:42)
[2021-12-06] MEDS: Insulin LISPRO 300 UNITS/3 ML VIAL SUBQ SCH ×4 (09:01→20:39)
[2021-12-06] MEDS: Chlorhexidine Rinse 15 ML MOUTHWASH MM SCH ×2 (09:01→20:42)
[2021-12-07 04:38] LABS: Basophils # 0.1 K/mcL (0.0-0.2); Basophils % 0.8 %; Eosinophils # 0.2 K/mcL (0.0-0.6); Eosinophils % 2.6 %; Hematocrit 26.1 % (37.5-50.1); Immature Granulocytes % 0.3 % (0-4); Lymphocytes # 1.2 K/mcL (0.6-4.6); Lymphocytes % 18.6 %; Mean Corpuscular HGB Conc 30.7 g/dL (31.6-35.5); Mean Corpuscular Hemoglobin 24.2 pg (28.0-33.3); Mean Corpuscular Volume 78.9 fL (83.0-100.0); Mean Platelet Volume 9.5 fL (9.4-12.4); Monocytes # 0.5 K/mcL (0.0-1.3); Monocytes % 7.7 %; Neutrophils # 4.4 K/mcL (1.6-8.9); Platelet Count 471 K/mcL (140-400); Red Blood Count 3.31 M/mcL (4.19-5.50); Red Cell Distribution Width 21.4 % (11.5-14.5); White Blood Count 6.3 K/mcL (4.3-11.1)
[2021-12-07 05:03] LABS: BUN/Creatinine Ratio 9 (6-26); Blood Urea Nitrogen 7 mg/dL (8-23); Calcium 7.7 mg/dL (8.6-10.3); Carbon Dioxide 27 mEq/L (23-29); Chloride 107 mEq/L (98-107); Glucose 132 mg/dL (70-105); Osmolality,Calculated 290 (280-300); Potassium 3.5 mEq/L (3.5-5.1); Sodium 140 mEq/L (136-145); eGFR For African Americans > 60 (> 60); eGFR For Non-African Americans > 60 (> 60)
[2021-12-07] MEDS: Insulin LISPRO 300 UNITS/3 ML VIAL SUBQ SCH ×4 (09:22→20:25)
[2021-12-07] MEDS: Piperacillin/Tazobactam 3.375 GM in 0.9 % Sodium Chloride Mini Bag 100 ML IVPB SCH ×2 (09:22→16:09)
[2021-12-07] MEDS: Nystatin SUSP 5 ML UD.LIQ PO SCH ×4 (09:24→20:23)
[2021-12-07] MEDS: hydrALAZINE 25 MG TABLET PO SCH ×3 (09:27→20:23)
[2021-12-07] MEDS: amLODIPine 5 MG TABLET PO SCH (09:27)
[2021-12-07] MEDS: Aspirin Enteric Coated 81 MG Tablet PO SCH (09:27)
[2021-12-07] MEDS: lisinopriL 20 MG TABLET PO SCH (09:28)
[2021-12-07] MEDS: Multivit/Ca/Min/Fe/FA 1 TAB TABLET PO SCH (09:28)
[2021-12-07] MEDS: Chlorhexidine Rinse 15 ML MOUTHWASH MM SCH ×2 (09:28→20:23)
[2021-12-07 13:08] LABS: Adenovirus F 40/41 PCR Not detected (Not detect); Astrovirus PCR Not detected (Not detect); C.difficile Toxin A/B Gene PCR Not detected (Not detect); Campylobacter by PCR Not detected (Not detect); Cryptosporidium by PCR Not detected (Not detect); Cyclospora cayetanensis PCR Not detected (Not detect); E. coli O157 by PCR Not detected (Not detect); Entamoeba histolytica PCR Not detected (Not detect); Enteroaggregative E.coli(EAEC) Not detected (Not detect); Enteropathogenic E.coli(EPEC) Not detected (Not detect); Enterotoxigenic E.coli (ETEC) Not detected (Not detect); Giardia lamblia PCR Not detected (Not detect); Norovirus GI/GII PCR Not detected (Not detect); Plesiomonas shigelloides PCR Not detected (Not detect); Rotavirus A PCR Not detected (Not detect); Salmonella PCR Not detected (Not detect); Sapovirus PCR Not detected (Not detect); Shig/EnteroinvasiveE coli EIEC Not detected (Not detect); Shigalike tox-prod E coli STEC Not detected (Not detect); Vibrio PCR Not detected (Not detect); Vibrio cholerae PCR Not detected (Not detect); Yersinia enterocolitica PCR Not detected (Not detect)
[2021-12-07] MEDS: Melatonin 3 MG TABLET PO PRN (20:23)
[2021-12-08] MEDS: Piperacillin/Tazobactam 3.375 GM in 0.9 % Sodium Chloride Mini Bag 100 ML IVPB SCH ×3 (00:27→16:51)
[2021-12-08] MEDS: Insulin LISPRO 300 UNITS/3 ML VIAL SUBQ SCH ×4 (07:25→19:39)
[2021-12-08] MEDS: Chlorhexidine Rinse 15 ML MOUTHWASH MM SCH ×3 (08:03→19:47)
[2021-12-08] MEDS: Aspirin Enteric Coated 81 MG Tablet PO SCH (08:03)
[2021-12-08] MEDS: lisinopriL 20 MG TABLET PO SCH (08:03)
[2021-12-08] MEDS: Nystatin SUSP 5 ML UD.LIQ PO SCH ×5 (08:03→19:47)
[2021-12-08] MEDS: hydrALAZINE 25 MG TABLET PO SCH ×3 (08:04→19:42)
[2021-12-08] MEDS: Multivit/Ca/Min/Fe/FA 1 TAB TABLET PO SCH (08:04)
[2021-12-08] MEDS: amLODIPine 5 MG TABLET PO SCH (08:04)
[2021-12-08] MEDS ORDERED: 0.9 % Sodium Chloride 1,000 ML ONE (08:21)
[2021-12-08] MEDS ORDERED: 0.9 % Sodium Chloride 500 ML ONE (08:33)
[2021-12-08] MEDS ORDERED: *HR* FentaNYL (PF) 100 MCG/2 ML VIAL IVP ONE (08:47)
[2021-12-08] MEDS ORDERED: *HR* Midazolam HCl 2 MG/2 ML VIAL IVP ONE (08:47)
[2021-12-08] MEDS: Acetaminophen 325 MG TABLET PO PRN (12:24)
[2021-12-08 14:45] LABS: Hematocrit 22.7 % (37.5-50.1); Mean Corpuscular HGB Conc 30.8 g/dL (31.6-35.5); Mean Corpuscular Hemoglobin 24.2 pg (28.0-33.3); Mean Corpuscular Volume 78.5 fL (83.0-100.0); Mean Platelet Volume 9.8 fL (9.4-12.4); Platelet Count 460 K/mcL (140-400); Red Blood Count 2.89 M/mcL (4.19-5.50); Red Cell Distribution Width 21.5 % (11.5-14.5)
[2021-12-08 20:10] LABS: Hematocrit 23.4 % (37.5-50.1); Hemoglobin 7.2 g/dL (12.9-16.9); Mean Corpuscular HGB Conc 30.8 g/dL (31.6-35.5); Mean Corpuscular Hemoglobin 24.5 pg (28.0-33.3); Mean Corpuscular Volume 79.6 fL (83.0-100.0); Mean Platelet Volume 9.3 fL (9.4-12.4); Platelet Count 507 K/mcL (140-400); Red Blood Count 2.94 M/mcL (4.19-5.50); Red Cell Distribution Width 21.6 % (11.5-14.5); White Blood Count 7.2 K/mcL (4.3-11.1)
[2021-12-08 20:18] LABS: INR 1.3; Prothrombin Time 14.5 Seconds (9.4-12.1)
[2021-12-09] MEDS: Piperacillin/Tazobactam 3.375 GM in 0.9 % Sodium Chloride Mini Bag 100 ML IVPB SCH ×3 (02:51→17:10)
[2021-12-09 04:40] LABS: BUN/Creatinine Ratio 12 (6-26); Blood Urea Nitrogen 13 mg/dL (8-23); Calcium 7.4 mg/dL (8.6-10.3); Carbon Dioxide 29 mEq/L (23-29); Chloride 107 mEq/L (98-107); Glucose 133 mg/dL (70-105); Hematocrit 21.8 % (37.5-50.1); Hemoglobin 6.6 g/dL (12.9-16.9); Mean Corpuscular HGB Conc 30.3 g/dL (31.6-35.5); Mean Corpuscular Volume 79.3 fL (83.0-100.0); Mean Platelet Volume 9.5 fL (9.4-12.4); Osmolality,Calculated 298 (280-300); Platelet Count 447 K/mcL (140-400); Potassium 3.6 mEq/L (3.5-5.1); Red Blood Count 2.75 M/mcL (4.19-5.50); Red Cell Distribution Width 21.7 % (11.5-14.5); Sodium 143 mEq/L (136-145); White Blood Count 5.4 K/mcL (4.3-11.1); eGFR For African Americans > 60 (> 60); eGFR For Non-African Americans > 60 (> 60)
[2021-12-09] MEDS: Insulin LISPRO 300 UNITS/3 ML VIAL SUBQ SCH ×3 (07:46→16:17)
[2021-12-09] MEDS: lisinopriL 20 MG TABLET PO SCH (09:03)
[2021-12-09] MEDS: hydrALAZINE 25 MG TABLET PO SCH ×3 (09:03→20:22)
[2021-12-09] MEDS: Aspirin Enteric Coated 81 MG Tablet PO SCH (09:03)
[2021-12-09] MEDS: Multivit/Ca/Min/Fe/FA 1 TAB TABLET PO SCH (09:03)
[2021-12-09] MEDS: Nystatin SUSP 5 ML UD.LIQ PO SCH ×4 (09:04→20:21)
[2021-12-09] MEDS: Chlorhexidine Rinse 15 ML MOUTHWASH MM SCH ×2 (09:04→20:22)
[2021-12-09] MEDS: amLODIPine 5 MG TABLET PO SCH (09:04)
[2021-12-09] MEDS ORDERED: 0.9 % Sodium Chloride 250 ML ONE (11:08)
[2021-12-09 20:39] LABS: Hemoglobin 7.4 g/dL (12.9-16.9); Mean Corpuscular HGB Conc 30.8 g/dL (31.6-35.5); Mean Corpuscular Hemoglobin 25.5 pg (28.0-33.3); Mean Corpuscular Volume 82.8 fL (83.0-100.0); Mean Platelet Volume 9.8 fL (9.4-12.4); Platelet Count 408 K/mcL (140-400); Red Cell Distribution Width 21.2 % (11.5-14.5); White Blood Count 4.6 K/mcL (4.3-11.1)
[2021-12-10] MEDS: Insulin LISPRO 300 UNITS/3 ML VIAL SUBQ SCH ×5 (03:15→20:14)
[2021-12-10 05:17] LABS: Hematocrit 23.1 % (37.5-50.1); Hemoglobin 7.2 g/dL (12.9-16.9); Mean Corpuscular HGB Conc 31.2 g/dL (31.6-35.5); Mean Corpuscular Hemoglobin 25.4 pg (28.0-33.3); Mean Corpuscular Volume 81.6 fL (83.0-100.0); Mean Platelet Volume 9.5 fL (9.4-12.4); Platelet Count 395 K/mcL (140-400); Red Blood Count 2.83 M/mcL (4.19-5.50); Red Cell Distribution Width 21.1 % (11.5-14.5); White Blood Count 4.2 K/mcL (4.3-11.1)
[2021-12-10] MEDS: Chlorhexidine Rinse 15 ML MOUTHWASH MM SCH ×2 (08:27→20:13)
[2021-12-10] MEDS: Nystatin SUSP 5 ML UD.LIQ PO SCH ×4 (08:27→20:16)
[2021-12-10] MEDS: lisinopriL 20 MG TABLET PO SCH (08:37)
[2021-12-10] MEDS: amLODIPine 5 MG TABLET PO SCH (08:37)
[2021-12-10] MEDS: Aspirin Enteric Coated 81 MG Tablet PO SCH (08:37)
[2021-12-10] MEDS: Piperacillin/Tazobactam 3.375 GM in 0.9 % Sodium Chloride Mini Bag 100 ML IVPB SCH ×2 (08:37)
[2021-12-10] MEDS: Multivit/Ca/Min/Fe/FA 1 TAB TABLET PO SCH (08:37)
[2021-12-10] MEDS: hydrALAZINE 25 MG TABLET PO SCH ×3 (08:37→20:15)
[2021-12-10 09:26] LABS: INR 1.2; Prothrombin Time 13.7 Seconds (9.4-12.1)
[2021-12-10] MEDS: Pantoprazole 40 MG VIAL IVP SCH ×2 (12:27→16:17)
[2021-12-10 18:50] LABS: Hematocrit 21.5 % (37.5-50.1); Hemoglobin 6.6 g/dL (12.9-16.9); Mean Corpuscular HGB Conc 30.7 g/dL (31.6-35.5); Mean Corpuscular Hemoglobin 25.8 pg (28.0-33.3); Mean Platelet Volume 10.3 fL (9.4-12.4); Platelet Count 263 K/mcL (140-400); Red Blood Count 2.56 M/mcL (4.19-5.50); Red Cell Distribution Width 21.2 % (11.5-14.5); White Blood Count 3.8 K/mcL (4.3-11.1)
[2021-12-10] MEDS ORDERED: 0.9 % Sodium Chloride 250 ML ONE (22:15)
[2021-12-11] MEDS: Pantoprazole 40 MG VIAL IVP SCH ×2 (06:01→17:23)
[2021-12-11 07:26] LABS: Hematocrit 28.9 % (37.5-50.1); Mean Corpuscular HGB Conc 30.8 g/dL (31.6-35.5); Mean Corpuscular Hemoglobin 25.9 pg (28.0-33.3); Mean Platelet Volume 9.6 fL (9.4-12.4); Platelet Count 391 K/mcL (140-400); Red Blood Count 3.44 M/mcL (4.19-5.50); Red Cell Distribution Width 20.6 % (11.5-14.5); White Blood Count 4.2 K/mcL (4.3-11.1)
[2021-12-11 07:27] LABS: Hemoglobin 8.9 g/dL (12.9-16.9)
[2021-12-11 07:43] LABS: BUN/Creatinine Ratio 11 (6-26); Blood Urea Nitrogen 9 mg/dL (8-23); Calcium 7.8 mg/dL (8.6-10.3); Carbon Dioxide 28 mEq/L (23-29); Chloride 110 mEq/L (98-107); Glucose 169 mg/dL (70-105); Osmolality,Calculated 297 (280-300); Potassium 3.3 mEq/L (3.5-5.1); Sodium 142 mEq/L (136-145); eGFR For African Americans > 60 (> 60); eGFR For Non-African Americans > 60 (> 60)
[2021-12-11] MEDS: Chlorhexidine Rinse 15 ML MOUTHWASH MM SCH ×2 (08:20→20:48)
[2021-12-11] MEDS: Nystatin SUSP 5 ML UD.LIQ PO SCH ×4 (08:20→20:48)
[2021-12-11] MEDS: hydrALAZINE 25 MG TABLET PO SCH ×3 (08:25→21:00)
[2021-12-11] MEDS: Insulin LISPRO 300 UNITS/3 ML VIAL SUBQ SCH ×4 (08:25→20:50)
[2021-12-11] MEDS: amLODIPine 5 MG TABLET PO SCH (08:25)
[2021-12-11] MEDS: Multivit/Ca/Min/Fe/FA 1 TAB TABLET PO SCH (08:25)
[2021-12-11] MEDS: lisinopriL 20 MG TABLET PO SCH (08:25)
[2021-12-11] MEDS: levoFLOXacin 750 MG TABLET PO SCH (12:36)
[2021-12-11 16:29] LABS: Hematocrit 26.1 % (37.5-50.1); Hemoglobin 8.2 g/dL (12.9-16.9); Mean Corpuscular HGB Conc 31.4 g/dL (31.6-35.5); Mean Corpuscular Hemoglobin 26.2 pg (28.0-33.3); Mean Corpuscular Volume 83.4 fL (83.0-100.0); Mean Platelet Volume 9.6 fL (9.4-12.4); Platelet Count 351 K/mcL (140-400); Red Blood Count 3.13 M/mcL (4.19-5.50); Red Cell Distribution Width 20.8 % (11.5-14.5); White Blood Count 4.2 K/mcL (4.3-11.1)
[2021-12-11] MEDS: Melatonin 3 MG TABLET PO PRN (21:14)
[2021-12-12] MEDS: Pantoprazole 40 MG VIAL IVP SCH (05:24)
[2021-12-12 06:01] LABS: Hematocrit 26.4 % (37.5-50.1); Mean Corpuscular HGB Conc 30.3 g/dL (31.6-35.5); Mean Corpuscular Hemoglobin 25.5 pg (28.0-33.3); Mean Corpuscular Volume 84.1 fL (83.0-100.0); Platelet Count 337 K/mcL (140-400); Red Blood Count 3.14 M/mcL (4.19-5.50); Red Cell Distribution Width 20.5 % (11.5-14.5)
[2021-12-12 06:26] LABS: BUN/Creatinine Ratio 11 (6-26); Blood Urea Nitrogen 9 mg/dL (8-23); Calcium 7.7 mg/dL (8.6-10.3); Carbon Dioxide 29 mEq/L (23-29); Chloride 106 mEq/L (98-107); Glucose 178 mg/dL (70-105); Osmolality,Calculated 289 (280-300); Potassium 3.8 mEq/L (3.5-5.1); Sodium 138 mEq/L (136-145); eGFR For African Americans > 60 (> 60); eGFR For Non-African Americans > 60 (> 60)
[2021-12-12] MEDS: Nystatin SUSP 5 ML UD.LIQ PO SCH ×4 (08:32→20:33)
[2021-12-12] MEDS: Chlorhexidine Rinse 15 ML MOUTHWASH MM SCH ×2 (08:32→20:33)
[2021-12-12] MEDS: Multivit/Ca/Min/Fe/FA 1 TAB TABLET PO SCH (08:37)
[2021-12-12] MEDS: lisinopriL 20 MG TABLET PO SCH (08:37)
[2021-12-12] MEDS: hydrALAZINE 25 MG TABLET PO SCH ×3 (08:37→20:32)
[2021-12-12] MEDS: Lactobacillus 1 EACH CAP.SPRINK PO SCH (08:37)
[2021-12-12] MEDS: amLODIPine 5 MG TABLET PO SCH (08:37)
[2021-12-12] MEDS: levoFLOXacin 750 MG TABLET PO SCH (08:38)
[2021-12-12] MEDS: Insulin LISPRO 300 UNITS/3 ML VIAL SUBQ SCH ×4 (08:38→20:33)
[2021-12-12] MEDS: Melatonin 3 MG TABLET PO PRN (20:32)
[2021-12-13 05:47] LABS: Hemoglobin 8.7 g/dL (12.9-16.9); Mean Corpuscular HGB Conc 31.1 g/dL (31.6-35.5); Mean Corpuscular Hemoglobin 26.1 pg (28.0-33.3); Mean Corpuscular Volume 84.1 fL (83.0-100.0); Mean Platelet Volume 9.8 fL (9.4-12.4); Platelet Count 329 K/mcL (140-400); Red Blood Count 3.33 M/mcL (4.19-5.50); Red Cell Distribution Width 20.4 % (11.5-14.5); White Blood Count 4.6 K/mcL (4.3-11.1)
[2021-12-13 06:07] LABS: BUN/Creatinine Ratio 10 (6-26); Blood Urea Nitrogen 8 mg/dL (8-23); Calcium 7.9 mg/dL (8.6-10.3); Carbon Dioxide 30 mEq/L (23-29); Chloride 105 mEq/L (98-107); Glucose 170 mg/dL (70-105); Osmolality,Calculated 290 (280-300); Potassium 3.7 mEq/L (3.5-5.1); Sodium 139 mEq/L (136-145); eGFR For African Americans > 60 (> 60); eGFR For Non-African Americans > 60 (> 60)
[2021-12-13] MEDS: hydrALAZINE 25 MG TABLET PO SCH ×3 (09:00→20:37)
[2021-12-13] MEDS: levoFLOXacin 750 MG TABLET PO SCH (09:00)
[2021-12-13] MEDS: Chlorhexidine Rinse 15 ML MOUTHWASH MM SCH ×2 (09:01→20:33)
[2021-12-13] MEDS: Nystatin SUSP 5 ML UD.LIQ PO SCH ×4 (09:01→20:33)
[2021-12-13] MEDS: Multivit/Ca/Min/Fe/FA 1 TAB TABLET PO SCH (09:01)
[2021-12-13] MEDS: lisinopriL 20 MG TABLET PO SCH (09:01)
[2021-12-13] MEDS: Lactobacillus 1 EACH CAP.SPRINK PO SCH (09:01)
[2021-12-13] MEDS: amLODIPine 5 MG TABLET PO SCH (09:01)
[2021-12-13] MEDS: Insulin LISPRO 300 UNITS/3 ML VIAL SUBQ SCH ×4 (09:17→20:37)
[2021-12-13] MEDS ORDERED: 0.9 % Sodium Chloride 1,000 ML ONE (09:24)
[2021-12-14 03:07] LABS: Hematocrit 24.3 % (37.5-50.1); Hemoglobin 7.5 g/dL (12.9-16.9); Mean Corpuscular HGB Conc 30.9 g/dL (31.6-35.5); Mean Corpuscular Hemoglobin 25.9 pg (28.0-33.3); Mean Corpuscular Volume 83.8 fL (83.0-100.0); Mean Platelet Volume 10.2 fL (9.4-12.4); Platelet Count 295 K/mcL (140-400); Red Cell Distribution Width 19.9 % (11.5-14.5); White Blood Count 4.4 K/mcL (4.3-11.1)
[2021-12-14 03:43] LABS: BUN/Creatinine Ratio 10 (6-26); Blood Urea Nitrogen 7 mg/dL (8-23); Calcium 6.9 mg/dL (8.6-10.3); Carbon Dioxide 25 mEq/L (23-29); Chloride 110 mEq/L (98-107); Glucose 137 mg/dL (70-105); Osmolality,Calculated 290 (280-300); Potassium 3.2 mEq/L (3.5-5.1); Sodium 140 mEq/L (136-145); eGFR For African Americans > 60 (> 60); eGFR For Non-African Americans > 60 (> 60)
[2021-12-14] MEDS: amLODIPine 5 MG TABLET PO SCH (08:55)
[2021-12-14] MEDS: Lactobacillus 1 EACH CAP.SPRINK PO SCH (08:56)
[2021-12-14] MEDS: hydrALAZINE 25 MG TABLET PO SCH ×3 (08:56→19:34)
[2021-12-14] MEDS: lisinopriL 20 MG TABLET PO SCH (08:56)
[2021-12-14] MEDS: Multivit/Ca/Min/Fe/FA 1 TAB TABLET PO SCH (08:57)
[2021-12-14] MEDS: Aspirin Enteric Coated 81 MG Tablet PO SCH (08:57)
[2021-12-14] MEDS: levoFLOXacin 750 MG TABLET PO SCH (08:57)
[2021-12-14] MEDS: Insulin LISPRO 300 UNITS/3 ML VIAL SUBQ SCH ×4 (08:58→20:36)
[2021-12-14] MEDS: Nystatin SUSP 5 ML UD.LIQ PO SCH ×4 (08:58→19:35)
[2021-12-14] MEDS: Chlorhexidine Rinse 15 ML MOUTHWASH MM SCH ×2 (08:58→19:35)
[2021-12-14] MEDS: Melatonin 3 MG TABLET PO PRN (19:42)
[2021-12-15 02:48] LABS: Hematocrit 26.7 % (37.5-50.1); Hemoglobin 8.3 g/dL (12.9-16.9); Mean Corpuscular HGB Conc 31.1 g/dL (31.6-35.5); Mean Corpuscular Hemoglobin 25.8 pg (28.0-33.3); Mean Corpuscular Volume 82.9 fL (83.0-100.0); Platelet Count 299 K/mcL (140-400); Red Blood Count 3.22 M/mcL (4.19-5.50); White Blood Count 5.6 K/mcL (4.3-11.1)
[2021-12-15 03:04] LABS: BUN/Creatinine Ratio 8 (6-26); Blood Urea Nitrogen 6 mg/dL (8-23); Calcium 7.9 mg/dL (8.6-10.3); Carbon Dioxide 27 mEq/L (23-29); Chloride 103 mEq/L (98-107); Glucose 131 mg/dL (70-105); Osmolality,Calculated 279 (280-300); Potassium 3.9 mEq/L (3.5-5.1); Sodium 135 mEq/L (136-145); eGFR For African Americans > 60 (> 60); eGFR For Non-African Americans > 60 (> 60)
[2021-12-15] MEDS: Lactobacillus 1 EACH CAP.SPRINK PO SCH (10:01)
[2021-12-15] MEDS: Nystatin SUSP 5 ML UD.LIQ PO SCH ×2 (10:01→11:55)
[2021-12-15] MEDS: levoFLOXacin 750 MG TABLET PO SCH (10:01)
[2021-12-15] MEDS: hydrALAZINE 25 MG TABLET PO SCH ×3 (10:01→20:17)
[2021-12-15] MEDS: Multivit/Ca/Min/Fe/FA 1 TAB TABLET PO SCH (10:01)
[2021-12-15] MEDS: Chlorhexidine Rinse 15 ML MOUTHWASH MM SCH ×2 (10:01→20:14)
[2021-12-15] MEDS: lisinopriL 20 MG TABLET PO SCH (10:01)
[2021-12-15] MEDS: Aspirin Enteric Coated 81 MG Tablet PO SCH (10:01)
[2021-12-15] MEDS: amLODIPine 5 MG TABLET PO SCH (10:01)
[2021-12-15] MEDS: Insulin LISPRO 300 UNITS/3 ML VIAL SUBQ SCH ×4 (10:02→20:15)
[2021-12-16 05:29] LABS: Basophils % 0.3 %; Eosinophils # 0.3 K/mcL (0.0-0.6); Eosinophils % 5.6 %; Hemoglobin 8.3 g/dL (12.9-16.9); Immature Granulocytes % 0.3 % (0-4); Lymphocytes # 1.7 K/mcL (0.6-4.6); Lymphocytes % 28.2 %; Mean Corpuscular HGB Conc 31.9 g/dL (31.6-35.5); Mean Corpuscular Volume 81.5 fL (83.0-100.0); Mean Platelet Volume 9.6 fL (9.4-12.4); Monocytes # 0.8 K/mcL (0.0-1.3); Monocytes % 12.4 %; Neutrophils # 3.2 K/mcL (1.6-8.9); Platelet Count 292 K/mcL (140-400); Red Blood Count 3.19 M/mcL (4.19-5.50); Red Cell Distribution Width 19.6 % (11.5-14.5); Segmented Neutrophils % 53.2 %
[2021-12-16 05:48] LABS: BUN/Creatinine Ratio 10 (6-26); Blood Urea Nitrogen 8 mg/dL (8-23); Carbon Dioxide 25 mEq/L (23-29); Chloride 103 mEq/L (98-107); Glucose 124 mg/dL (70-105); Osmolality,Calculated 282 (280-300); Potassium 3.7 mEq/L (3.5-5.1); Sodium 136 mEq/L (136-145); eGFR For African Americans > 60 (> 60); eGFR For Non-African Americans > 60 (> 60)
[2021-12-16] MEDS: Insulin LISPRO 300 UNITS/3 ML VIAL SUBQ SCH ×2 (09:23→12:55)
[2021-12-16] MEDS: hydrALAZINE 25 MG TABLET PO SCH ×2 (09:25→15:36)
[2021-12-16] MEDS: lisinopriL 20 MG TABLET PO SCH (09:25)
[2021-12-16] MEDS: amLODIPine 5 MG TABLET PO SCH (09:25)
[2021-12-16] MEDS: levoFLOXacin 750 MG TABLET PO SCH (09:26)
[2021-12-16] MEDS: Aspirin Enteric Coated 81 MG Tablet PO SCH (09:26)
[2021-12-16] MEDS: Multivit/Ca/Min/Fe/FA 1 TAB TABLET PO SCH (09:26)
[2021-12-16] MEDS: Lactobacillus 1 EACH CAP.SPRINK PO SCH (09:26)
[2021-12-16] MEDS: Chlorhexidine Rinse 15 ML MOUTHWASH MM SCH (09:27)
[2021-12-16 12:20] LABS: Influenza A PCR Negative (Negative); Influenza B PCR Negative (Negative); Resp. Syncytial Virus PCR Negative (Negative)
[2021-12-16 12:43] LABS: SARS-CoV-2 by PCR (In House) Negative (Negative)
[2021-12-16 15:04] VITALS: BP 139/71; PULSE 103; TEMP 97.7; O2SAT 93
== END 2021-12-16 16:48 | DRG 862 ==
LOC: 3ANU 11:46 → EMEROOARM 11:46 → SUATTDRO 16:05 → OBSVTOIN 16:05 → 3ANU 17:05
PROVIDERS: ADMIT Internal Medicine; ATTEND Internal Medicine
PROC: IRDRAIN (2021-12-08 12:00)

== ENCOUNTER 2021-12-18 22:58 | Observation (INO) ==
[2021-12-19] MEDS ORDERED: Ondansetron 4 MG/2 ML VIAL IVP PRN (01:44)
[2021-12-19] MEDS ORDERED: Naloxone 0.4 MG/ML INJ IVP PRN (01:44)
[2021-12-19] MEDS ORDERED: Acetaminophen 325 MG TABLET PO PRN (01:44)
[2021-12-19] MEDS ORDERED: *HR* Heparin 5,000 UNIT/ML VIAL IVP PRN (01:45)
[2021-12-19] MEDS ORDERED: Dextrose 4 GM Chewable Tablets PO PRN ×2 (02:13)
[2021-12-19] MEDS ORDERED: D5% in Water 1,000 ML IVC PRN (02:13)
[2021-12-19] MEDS ORDERED: *HR* Dextrose 50 % in Water (Syg) 50 ML SYRINGE IVP PRN (02:13)
[2021-12-19 02:41] LABS: Hematocrit 26.5 % (37.5-50.1); Hemoglobin 8.4 g/dL (12.9-16.9); Mean Corpuscular HGB Conc 31.7 g/dL (31.6-35.5); Mean Corpuscular Hemoglobin 25.7 pg (28.0-33.3); Mean Platelet Volume 9.7 fL (9.4-12.4); Platelet Count 264 K/mcL (140-400); Red Blood Count 3.27 M/mcL (4.19-5.50); Red Cell Distribution Width 18.7 % (11.5-14.5); White Blood Count 7.1 K/mcL (4.3-11.1)
[2021-12-19 02:43] LABS: Heparin anti-factor XA UFH 0.69 IU/mL (0.30-0.70); INR 1.4; Prothrombin Time 15.5 Seconds (9.4-12.1)
[2021-12-19 02:55] LABS: BUN/Creatinine Ratio 10 (6-26); Blood Urea Nitrogen 7 mg/dL (8-23); Carbon Dioxide 24 mEq/L (23-29); Chloride 106 mEq/L (98-107); Potassium 3.5 mEq/L (3.5-5.1); Sodium 136 mEq/L (136-145); eGFR For African Americans > 60 (> 60)
[2021-12-19 02:56] LABS: Calcium 7.7 mg/dL (8.6-10.3); Glucose 132 mg/dL (70-105); Osmolality,Calculated 282 (280-300); Troponin I 0.03 ng/mL (< 0.04); eGFR For Non-African Americans > 60 (> 60)
[2021-12-19] MEDS: Heparin 25,000UNIT/250ML 1/2NS 25,000 UNIT/250 ML IV.SOLN IVC SCH (03:35)
[2021-12-19] MEDS: Insulin LISPRO 300 UNITS/3 ML VIAL SUBQ SCH ×3 (05:22→18:00)
[2021-12-19] MEDS ORDERED: Simethicone 80 MG TAB.CHEW PO PRN (10:43)
[2021-12-19] MEDS ORDERED: Perflutren Lipid Microsphere 1.3 ML in 0.9 % Sodium Chloride 8.7 ML IVP PRN (10:52)
[2021-12-19] MEDS ORDERED: Melatonin 3 MG TABLET PO ONE (23:30)
[2021-12-20] MEDS: Heparin 25,000UNIT/250ML 1/2NS 25,000 UNIT/250 ML IV.SOLN IVC SCH ×2 (00:59→19:47)
[2021-12-20] MEDS: Insulin LISPRO 300 UNITS/3 ML VIAL SUBQ SCH ×5 (01:28→20:04)
[2021-12-20] MEDS ORDERED: *HR* OxyCODONE Immed Rel 5 MG TABLET PO PRN (08:36)
[2021-12-20] MEDS: Sennosides/Docusate Sodium TABLET PO SCH ×2 (09:58→19:50)
[2021-12-20] MEDS: Aspirin Enteric Coated 81 MG Tablet PO SCH (09:58)
[2021-12-20] MEDS: hydrALAZINE 25 MG TABLET PO SCH ×3 (09:58→21:48)
[2021-12-20] MEDS: amLODIPine 5 MG TABLET PO SCH (09:58)
[2021-12-20] MEDS: lisinopriL 20 MG TABLET PO SCH (09:59)
[2021-12-20] MEDS: *HR* Heparin 5,000 UNIT/ML VIAL IVP PRN ×2 (11:15→23:24)
[2021-12-20 12:34] LABS: Basophils # 0.1 K/mcL (0.0-0.2); Eosinophils # 0.2 K/mcL (0.0-0.6); Eosinophils % 2.7 %; Hemoglobin 8.8 g/dL (12.9-16.9); Immature Granulocytes % 0.3 % (0-4); Lymphocytes # 2.1 K/mcL (0.6-4.6); Lymphocytes % 29.4 %; Mean Corpuscular HGB Conc 31.4 g/dL (31.6-35.5); Mean Corpuscular Hemoglobin 25.7 pg (28.0-33.3); Mean Corpuscular Volume 81.9 fL (83.0-100.0); Mean Platelet Volume 10.7 fL (9.4-12.4); Monocytes # 0.9 K/mcL (0.0-1.3); Monocytes % 12.3 %; Neutrophils # 3.8 K/mcL (1.6-8.9); Platelet Count 316 K/mcL (140-400); Red Blood Count 3.42 M/mcL (4.19-5.50); Red Cell Distribution Width 18.5 % (11.5-14.5); Segmented Neutrophils % 54.3 %
[2021-12-20 12:43] LABS: BUN/Creatinine Ratio 9 (6-26); Blood Urea Nitrogen 5 mg/dL (8-23); Calcium 8.2 mg/dL (8.6-10.3); Carbon Dioxide 28 mEq/L (23-29); Chloride 104 mEq/L (98-107); Glucose 128 mg/dL (70-105); Osmolality,Calculated 285 (280-300); Potassium 3.3 mEq/L (3.5-5.1); Sodium 138 mEq/L (136-145); eGFR For African Americans > 60 (> 60); eGFR For Non-African Americans > 60 (> 60)
[2021-12-20] MEDS ORDERED: Potassium Chloride Elixir 20 MEQ/15 ML UDC PO ONE (17:00)
[2021-12-20] MEDS: Melatonin 3 MG TABLET PO SCH (19:49)
[2021-12-21] MEDS: Insulin LISPRO 300 UNITS/3 ML VIAL SUBQ SCH ×4 (07:35→21:35)
[2021-12-21] MEDS: Sennosides/Docusate Sodium TABLET PO SCH ×2 (07:42→20:01)
[2021-12-21] MEDS: Aspirin Enteric Coated 81 MG Tablet PO SCH (07:42)
[2021-12-21] MEDS: lisinopriL 20 MG TABLET PO SCH (07:42)
[2021-12-21] MEDS: hydrALAZINE 25 MG TABLET PO SCH ×3 (07:42→20:01)
[2021-12-21] MEDS: amLODIPine 5 MG TABLET PO SCH (07:43)
[2021-12-21] MEDS: Heparin 25,000UNIT/250ML 1/2NS 25,000 UNIT/250 ML IV.SOLN IVC SCH (12:24)
[2021-12-21 12:33] LABS: BUN/Creatinine Ratio 9 (6-26); Blood Urea Nitrogen 5 mg/dL (8-23); Calcium 8.2 mg/dL (8.6-10.3); Carbon Dioxide 26 mEq/L (23-29); Chloride 101 mEq/L (98-107); Glucose 185 mg/dL (70-105); Osmolality,Calculated 280 (280-300); Potassium 3.6 mEq/L (3.5-5.1); Sodium 134 mEq/L (136-145); eGFR For African Americans > 60 (> 60); eGFR For Non-African Americans > 60 (> 60)
[2021-12-21] MEDS: Melatonin 3 MG TABLET PO SCH (20:01)
[2021-12-22] MEDS: Heparin 25,000UNIT/250ML 1/2NS 25,000 UNIT/250 ML IV.SOLN IVC SCH (04:38)
[2021-12-22] MEDS: Insulin LISPRO 300 UNITS/3 ML VIAL SUBQ SCH ×4 (07:34→20:47)
[2021-12-22] MEDS: Sennosides/Docusate Sodium TABLET PO SCH ×2 (07:40→20:34)
[2021-12-22] MEDS: lisinopriL 20 MG TABLET PO SCH (07:40)
[2021-12-22] MEDS: hydrALAZINE 25 MG TABLET PO SCH ×3 (07:40→20:34)
[2021-12-22] MEDS: Aspirin Enteric Coated 81 MG Tablet PO SCH (07:40)
[2021-12-22] MEDS: amLODIPine 5 MG TABLET PO SCH (07:41)
[2021-12-22] MEDS: Apixaban 5 MG TABLET PO SCH ×2 (12:02→20:33)
[2021-12-22] MEDS: Melatonin 3 MG TABLET PO SCH (20:34)
[2021-12-22] MEDS ORDERED: *HR* LORazepam 2 MG/ML VIAL IVP ONE (23:50)
[2021-12-23] MEDS: Insulin LISPRO 300 UNITS/3 ML VIAL SUBQ SCH ×4 (09:09→20:19)
[2021-12-23] MEDS: amLODIPine 5 MG TABLET PO SCH (10:21)
[2021-12-23] MEDS: lisinopriL 20 MG TABLET PO SCH (10:21)
[2021-12-23] MEDS: Aspirin Enteric Coated 81 MG Tablet PO SCH (10:21)
[2021-12-23] MEDS: hydrALAZINE 25 MG TABLET PO SCH ×3 (10:22→20:19)
[2021-12-23] MEDS: Sennosides/Docusate Sodium TABLET PO SCH ×2 (10:22→20:18)
[2021-12-23] MEDS: Apixaban 5 MG TABLET PO SCH ×2 (10:22→20:18)
[2021-12-23] MEDS: Melatonin 3 MG TABLET PO SCH (20:19)
[2021-12-24 05:35] VITALS: O2SAT 97
[2021-12-24] MEDS: Insulin LISPRO 300 UNITS/3 ML VIAL SUBQ SCH ×2 (08:03→12:03)
[2021-12-24] MEDS: Sennosides/Docusate Sodium TABLET PO SCH (08:04)
[2021-12-24] MEDS: lisinopriL 20 MG TABLET PO SCH (08:04)
[2021-12-24] MEDS: Aspirin Enteric Coated 81 MG Tablet PO SCH (08:04)
[2021-12-24] MEDS: hydrALAZINE 25 MG TABLET PO SCH ×2 (08:04→15:33)
[2021-12-24] MEDS: amLODIPine 5 MG TABLET PO SCH (08:05)
[2021-12-24] MEDS: Apixaban 5 MG TABLET PO SCH (08:05)
[2021-12-24 10:55] VITALS: BP 148/72; PULSE 98; TEMP 98.3
[2021-12-24 15:13] LABS: Adenovirus Not Detected (Not Detect); Coronavirus 229E Not Detected (Not Detect); Coronavirus HKU1 Not Detected (Not Detect); Coronavirus NL63 Not Detected (Not Detect); Coronavirus OC43 Not Detected (Not Detect); Human Metapneumovirus Not Detected (Not Detect); Human Rhinovirus/Enterovirus Not Detected (Not Detect); Influenza A Subtype 2009 H1 Not Detected (Not Detect); SARS-CoV-2 Not Detected (Not Detect)
[2021-12-24 15:14] LABS: Bordetella Pertussis Not Detected (Not Detect); Chlamydophila pneumoniae Not Detected (Not Detect); Influenza B Not Detected (Not Detect); Mycoplasma pneumoniae Not Detected (Not Detect); Parainfluenza Virus 1 Not Detected (Not Detect); Parainfluenza Virus 2 Not Detected (Not Detect); Parainfluenza Virus 3 Not Detected (Not Detect); Parainfluenza Virus 4 Not Detected (Not Detect); Respiratory Syncytial Virus Not Detected (Not Detect)
== END 2021-12-24 16:33 ==
LOC: 3ANU
PROVIDERS: ADMIT Internal Medicine; ATTEND Internal Medicine